=== PATIENT | female | born 1965 | race Caucasian/White ===

== ENCOUNTER 2023-11-12 16:38 | Inpatient (IN) | payer OTHER, SELFPAY ==
[2023-11-12] VITALS (7 sets, daily range): BP systolic 123–135; BP diastolic 76–87; PULSE 80–108; RESP 15–21; TEMP 36.6–37; O2SAT 86–92; BMI 23.2
--- NOTE | ~2023-11-12 | XR_ITS ---
EXAMINATION: XR HAND, RIGHT CLINICAL INFORMATION: Right COMPARISON: None available. TECHNIQUE: PA, lateral, and oblique views of the right hand. FINDINGS: Nondisplaced comminuted fracture of the proximal phalanges of the fourth and fifth fingers with surrounding soft tissue swelling. These fractures extends to involve the fourth and fifth metacarpal phalangeal joints. Underlying mild degenerative osteoarthritis of interphalangeal joints. XR/XR hand RT 2V IMPRESSION: Nondisplaced comminuted intra-articular fractures of the proximal phalanges of the fourth and fifth fingers with surrounding soft tissue swelling.
--- NOTE | ~2023-11-12 | CT_ITS ---
EXAMINATION: CT CHEST WITH CONTRAST CLINICAL INFORMATION: Patient recently presenting with shortness of breath. History of left ventricular thrombus or accessory papillary muscle. COMPARISON: Chest radiograph from 11/12/2023. TECHNIQUE: Multidetector volumetric CT imaging of the chest was obtained after the administration of 65 mL of Omnipaque 350 intravenous contrast without immediate adverse reactions. Axial MIP volume rendering provided. Sagittal and coronal reformatted images were obtained. This CT examination was performed using dose optimization techniques as appropriate, variously including the following: *Automated exposure control *Adjustment of mA and/or kV according to patient size (this includes techniques or standardized protocols for targeted exams where dose is matched to indication/reason for exam; i.e. extremities or head) *Use of iterative reconstruction technique DLP: 77 mGy-cm FINDINGS: LUNGS AND PLEURA: Moderate centrilobular emphysema has an upper lobe predominance. Mild atelectasis at the dependent aspect of each lower lobe. No evidence of pulmonary edema, focal consolidation or mass. CARDIOVASCULAR: These images of the chest were acquired during the phase of optimal enhancement of the thoracic aorta and not pulmonary arteries. Therefore, this examination does not evaluate for pulmonary emboli. The pulmonary artery trunk is approximately 3.3 cm transverse diameter which is borderline enlarged; consider possibility of pulmonary arterial hypertension. Cardiac chambers are normal in size. No pericardial effusion. There is a subtle curvilinear subendocardial hypoattenuation at the left ventricular apex. This could represent subendocardial fat from prior myocardial infarction. There is no left ventricular pseudoaneurysm or overt thrombus along the wall. The grossly normal anterior and posterior papillary muscles are noted (e.g., images 122 and 145, series 7). There is no visible cardiac mass. Thoracic aorta is normal in caliber. Aortic root is 3.4 cm and sinotubular junction 3 cm diameter. Note the level of the right pulmonary artery, the ascending thoracic aorta is 3.3 cm AP diameter. No thoracic aortic aneurysm or dissection. CORONARY ARTERY CALCIFICATION: Mild atherosclerotic calcification of the left anterior descending coronary artery is noted. MEDIASTINUM AND LOWER NECK: No mediastinal mass. The esophagus and thyroid gland are unremarkable. LYMPHATICS: No pathologic sized lymph nodes. UPPER ABDOMEN: Simple cyst of the posterior right kidney. No renal imaging follow-up is recommended for simple cysts. SKELETAL AND CHEST WALL: No acute or suspicious osseous abnormality. 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 Old mild compression fracture of the T6 vertebral body. Old T9 vertebral body compression fracture resulting in 50% anterior height loss. There appear to be a few old healed nondisplaced rib fractures. CT/CT chest w IV con IMPRESSION: * No CT imaging evidence of a left ventricular pseudoaneurysm or thrombus. * There appears to be subendocardial fat attenuation at the apex of the left ventricle as may be seen in myocardial infarction. * Pulmonary artery trunk is borderline enlarged; consider possibility of pulmonary arterial hypertension. * Moderate pulmonary emphysema has an upper lobe predominance. 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 Also, there are old fractures of T6 and T9 vertebral bodies
--- NOTE | ~2023-11-12 | XR_ITS ---
EXAMINATION: XR chest 1V CLINICAL INFORMATION: Reason for Exam SOB COMPARISON: None TECHNIQUE: Single portable frontal view. Tubes and lines: None Lungs and pleura: There is pulmonary vascular congestion, Diffuse increased interstitial lung marking and peribronchial cuffing might be a small airway disease such as bronchiolitis or interstitial pneumonitis, versus interstitial lung disease versus interstitial edema. No dense focal consolidation pneumonia. Heart and mediastinum: Prominent augusto bilaterally might be a vascular congestion in the setting of failure, The mediastinum is within normal limits.. Bones/soft tissue: Skeletal structures included are normal for patient's age. XR/XR chest 1V IMPRESSION: 1. Pulmonary vascular congestion. 2. Diffuse interstitial opacification could be interstitial edema, cannot rule out underlying superimposed infiltrates. 3. No significant pleural effusion. 4. Prominent augusto bilaterally could be vascular. Attention to follow-up chest PA and lateral recommended after patient's symptoms improved.
--- NOTE | 2023-11-12 16:56 | ECG_ITS ---
Test Reason : SOB Blood Pressure : / mmHG Vent. Rate : 090 BPM Atrial Rate : 090 BPM P-R Int : 172 ms QRS Dur : 104 ms QT Int : 396 ms P-R-T Axes : 072 120 042 degrees QTc Int : 484 ms Normal sinus rhythm Left posterior fascicular block Cannot rule out anteroseptal infarct Prolonged QT Abnormal ECG No previous ECGs available Referred By: Alex Hickey Electronically Signed By:Seth Alanis
--- NOTE | 2023-11-12 17:07 | ED.GENADULT ---
HPI - General Adult General Chief complaint: Dyspnea Stated complaint: Hx of COPD, CC SOB, low O2 sat, duoneb given Time Seen by Provider: 11/12/23 16:41 History of Present Illness HPI narrative: 57 years old with past medical history of COPD on 2/3 L of oxygen at home, opiate use disorder active, presents to the emergency room sent by her primary care doctor for shortness of breath. The patient presented to the office initially just for a checkup of a recent fracture of the 4th digit right hand which was treated with lucinda taping. However when she arrived she was somnolent, initial assessment showed an SpO2 of 83% on 3 L for which EMS was called. Patient was placed on 4 L nasal cannula, was given 1 DuoNeb with improvement of her symptoms. Patient endorsed that at 2:00 p.m. she snored heroin. Narcan was not given given the fact that patient's respiratory rate was never depressed. Patient on arrival is somnolent but easily arousable with verbal stimuli. Respiratory rate fluctuates between 10 and 12. She reports bilateral leg swelling over the past few days and worsening shortness of breath Patient denies prior cardiac history, looking back at her prior chart no other notes available. Related Data Allergies Allergy/AdvReac Type Severity Reaction Status Date / Time No Known Allergies Allergy Verified 11/12/23 16:49 Environmental Allergy Unknown Unknown Uncoded 11/12/23 16:49 Review of Systems Review of Systems: Yes all other systems are reviewed and are negative [facility] Social History Social History Use of substances other than those prescribed or required for medical reasons: Yes Substance Use Type: Heroin Advance Directives: No Advance Directives Information Provided: No Physical Exam ED Vital Signs: Vital Signs - 24 hr 11/12/23 16:44 11/12/23 17:21 11/12/23 18:28 Temperature 98.6 F Pulse Rate 91 87 92 Respiratory Rate 18 21 H 18 Blood Pressure 123/77 132/81 Pulse Oximetry 90 L 92 Oxygen Delivery Method Nasal Cannula Oxymask Oxygen Flow Rate 2 11/12/23 18:32 11/12/23 19:45 Temperature Pulse Rate 87 Respiratory Rate 15 Blood Pressure Pulse Oximetry 86 L Oxygen Delivery Method Oxymask Oxygen Flow Rate 2 BMI result Body Mass Index 23.2 General: Alert, Not in Distress Skin: No rash, warm HEENT: Atraumatic, No Exudate or Pharyngeal Erythema Resp: Some bilateral expiratory wheeze but mostly reduced respiratory sound throughout all mosley Cardio: Regular rate and Rhythm, Normal S1, S2 ABD: Abd soft, non tender, no guarding or rebound. Normal Bowel sounds. : No cva tenderness Neuro: Alert, oriented x4, PERRL Strenght 5/5 on all extremities Sensation is preserved in both lower and upper extremities Index to nose: normal Cranial Nerves II-XII grossly intact No dysarthria, or aphasia No neglet. Visual mosley are normal bilaterally Psych: Cooperative, NO SI Course Reevaluation(s) Reevaluation #1: In consideration of patient's VBG will discuss with respiratory therapist start of noninvasive ventilation. Time: 18:28 Reevaluation #2: Repeated VBG showed improvement of PH. Likely chronic respiratory acidosis. Discussed with hospitalist. We will admit to hospital for acute heart failure, COPD exacerbation. Time: 20:37 Medications Administered Discontinued Medications Generic Name Dose Route Start Last Admin Trade Name Freq PRN Reason Stop Dose Admin Albuterol Sulfate 5 mg/ 0 mg 11/12/23 17:13 11/12/23 17:21 Albuterol/Ipratropium 3 ml INHALE 11/12/23 17:14 7.5 each ONCE ONE Administration Furosemide 40 mg 11/12/23 16:58 11/12/23 17:39 Furosemide 40 Mg/4 Ml Vial IVPUSH 11/12/23 16:59 40 mg ONCE ONE Administration Protocol Methylprednisolone Sodium Succinate 125 mg 11/12/23 16:57 11/12/23 17:38 Methylprednisolone Sod Succ 125 Mg/2 Ml Vial IVPUSH 11/12/23 16:58 125 mg ONCE ONE Administration Medical Decision Making Medical Decision Making [facility] Narrative: Patient presented to the emergency room with new onset shortness of breath. Patient has history of COPD, no history of heart disease from what we know, she also uses heroin daily last dose was at 2:00 p.m.. Did not receive Narcan today. Patient respiratory rate at this time does not warrant administration of Narcan, bedside ultrasound which I personally performed showed bilateral B-lines. Likely this is a if 1st presentation of acute heart failure although a component of COPD can not be ruled out. Possible other differential diagnosis includes pneumonia although without fever is less likely. Plan CBC, BMP, BNP, troponin Chest x-ray X-ray and Lasix 40 mg IV Steroids Bronchodilator protocol Patient at this time is requiring 5 L nasal cannula we will consider a switching to open mask if needed. Target SpO2 88-92% Admission/Observation Consideration of admission/observation: Escalation of care including admission/observation considered Lab Data MDM Lab Attestation statement: I reviewed the patient's lab results. VBG shows respiratory acidosis, 11/12/23 17:06 11/12/23 17:06 Labs: Lab Results 11/12/23 11/12/23 11/12/23 Range/Units 17:06 17:36 20:26 WBC 6.1 (4.8-10.8) X10*3/uL RBC 5.46 (4.20-5.50) X10*6/uL Hgb 16.1 H (12.0-16.0) g/dl Hct 52.5 H (37.0-47.0) % MCV 96.2 (80.0-98.0) fL MCH 29.5 (27.0-33.0) pg MCHC 30.7 L (31.0-35.0) g/dl RDW 13.5 (11.0-16.0) % Plt Count 213 (160-400) X10*3/uL MPV 9.5 (9.4-12.3) fL Immature Gran % (Auto) 0.5 H (0.0-0.4) % Neut % (Auto) 74.4 H (45-73) % Lymph % (Auto) 12.0 L (20-40) % [place] % (Auto) 12.8 H (2-11) % Eos % (Auto) 0.0 (0-4) % Baso % (Auto) 0.3 (0-2) % Lymph # (Auto) 0.7 L (1.2-4.9) X10*3/uL [place] # (Auto) 0.8 (0.1-1.2) X10*3/uL Eos # (Auto) 0.0 (0.0-0.4) X10*3/uL Baso # (Auto) 0.0 (0.0-0.2) X10*3/uL Abs Immat Gran (auto) 0.03 (0.00-0.03) X10*3/uL Absolute Neuts (auto) 4.5 (2.0-8.3) x10*3/uL Absolute Nucleated RBC 0.000 (0.0-0.012) X10*3/uL Nucleated RBC % (auto) 0.0 (0.0-0.2) /100WBC VBG pH 7.30 L 7.37 (7.32-7.43) VBG pCO2 84 86 mmHg VBG pO2 90 78 mmHg VBG HCO3 42 H 50 H (22-26) mmol/L VBG O2 Saturation 99.0 97.0 % VBG Base Excess 11.0 18.7 mmol/L Sodium 139 (135-145) mmol/L Potassium 4.8 (3.3-5.1) mmol/L Chloride 93 L (96-108) mmol/L Carbon Dioxide 36 H (22-29) mmol/L Anion Gap 15 (12-20) BUN 11 (9-16) mg/dL Creatinine 0.54 (0.5-1.4) mg/dL Estim Creat Clear Calc 93.9 Estimated GFR > 60 Random Glucose 94 (60-115) mg/dL Calcium 9.3 (8.4-10.2) mg/dL Troponin I High Sens < 2.7 (<3.5-17.0) ng/L B-Natriuretic Peptide 209 H (<100) pg/mL Independent Interpretation I performed an independent interpretation of an: EKG (I personally reviewed the patient's EKG that shows sinus rhythm), Plain X-Ray (I personally reviewed patient x-ray of the hand that showed normal alignment of the bone fragment.) and Ultrasound (I personally performed bedside ultrasound of the lungs which showed bilateral B-lines. I personally performed cardiac ultrasound at bedside that showed normal LV function mildly enlarged RV and RA) Interpretation: I personally reviewed and interpreted the patient's chest x-ray that shows bilateral congestion. Independent Historian Clinical information obtained from an independent historian. History obtained from or confirmed by: Spouse Chronic Conditions Patient?s care impacted by: Other (codp, opiate use disorer) Critical Care Time Critical Care Time Critical Care Time: Yes Total Critical Care Time: 35 Attestation: The patient was critically ill with high probability of imminent of life-threatening deterioration, due to acute respiratory failure and hypoxemia I spent 35 minutes of discontinuous time evaluating the patient, delivering critical care at bedside, discussing and evaluating parents with creative consultant, critical care time does not include time spent performing separately billable procedure or teaching. Discharge Plan Discharge Clinical Impression: Acute exacerbation of chronic obstructive airways disease, Congestive heart failure Patient Disposition: Admitted As Inpatient Print Language: Czech
[2023-11-12 17:10] LABS: MANUAL DIFF FLAG NO
[2023-11-12 17:12] LABS: Basophils Percent Auto 0.3 % (0-2); Hematocrit 52.5 % (37.0-47.0); Hemoglobin 16.1 g/dl (12.0-16.0); Imm Gran Abs Auto 0.03 X10*3/uL (0.00-0.03); Imm Gran Pct Auto 0.5 % (0.0-0.4); Lymphocytes Absolute Auto 0.7 X10*3/uL (1.2-4.9); Mean Corpuscular HGB Conc 30.7 g/dl (31.0-35.0); Mean Corpuscular Hemoglobin 29.5 pg (27.0-33.0); Mean Corpuscular Volume 96.2 fL (80.0-98.0); Mean Platelet Volume 9.5 fL (9.4-12.3); Monocytes Absolute Auto 0.8 X10*3/uL (0.1-1.2); Monocytes Percent Auto 12.8 % (2-11); Neutrophils Absolute Auto 4.5 x10*3/uL (2.0-8.3); Neutrophils Percent Auto 74.4 % (45-73); Platelet Count 213 X10*3/uL (160-400); Red Blood Count 5.46 X10*6/uL (4.20-5.50); Red Cell Distribution Width 13.5 % (11.0-16.0); White Blood Count 6.1 X10*3/uL (4.8-10.8)
[2023-11-12] MEDS: Albuterol Sulfate 5 MG, Albuterol/Iprat 2.5/0.5MG 3 ML 3 ML INHALE (17:21)
[2023-11-12 17:33] LABS: B Type Natriuretic Peptide 209 pg/mL (<100)
[2023-11-12 17:36] LABS: Troponin-I High Sensitivity < 2.7 ng/L (<3.5-17.0)
[2023-11-12 17:37] LABS: Anion Gap 15 (12-20); Blood Urea Nitrogen 11 mg/dL (9-16); Calcium 9.3 mg/dL (8.4-10.2); Carbon Dioxide 36 mmol/L (22-29); Chloride 93 mmol/L (96-108); Creatinine Clr Calc Pharmacy 93.9; Estimated Glomerular Filt Rate > 60; Glucose Random 94 mg/dL (60-115); Potassium 4.8 mmol/L (3.3-5.1); Sodium 139 mmol/L (135-145)
[2023-11-12] MEDS: methylPREDNISolone Sod Succ 125 MG/2 ML VIAL IVPUSH (17:38)
[2023-11-12] MEDS: Furosemide 40 MG/4 ML VIAL IVPUSH (17:39)
[2023-11-12 17:43] LABS: VBG HCO3 42 mmol/L (22-26); VBG pCO2 84 mmHg; VBG pO2 90 mmHg
[2023-11-12 17:43] LABS: Venous Blood Gas Refer to POC result
--- NOTE | 2023-11-12 20:05 | PC.NURSE ---
pt tolerating bipap
[2023-11-12 20:32] LABS: VBG Base Excess 18.7 mmol/L; VBG HCO3 50 mmol/L (22-26); VBG pCO2 86 mmHg; VBG pH 7.37 (7.32-7.43); VBG pO2 78 mmHg
[2023-11-12 20:37] LABS: Venous Blood Gas Refer to POC result
--- NOTE | 2023-11-12 20:56 | PM.IMHP ---
History of Present Illness Date of Service: 11/12/23 Chief Complaint: Dyspnea This is a 57-year-old female with pertinent history of chronic hypoxic respiratory failure due to COPD on baseline 2 L supplemental oxygen, congestive heart failure with unspecified EF, mood disorder, heroin use disorder who presents to the emergency department for evaluation of dyspnea. Patient states she has been having symptoms for a while . Is a poor historian. Patient went today to PCP's office where she was found to be hypoxemic with SpO2 83% on 3 L supplemental oxygen and she was sent to the ER. Does endorse using heroin on the day of presentation. Admits wheezing but unclear orthopnea or PND. No cough, chest pain or palpitations. Does endorse bilateral lower extremity leg swelling. No fever, chills, abdominal pain, changes in urinary or bowel habits. In the emergency department, patient was found to be satting 86% on her home O2. Imaging with vascular congestion and interstitial edema with BNP 209. Patient was given IV furosemide 40 mg and IV Solu-Medrol with DuoNeb treatments in the ER. Review of Systems Constitutional: Constitutional: Reports fatigue and Reports weakness Cardiovascular: Cardiovascular: Reports dyspnea on exertion Respiratory: Respiratory: Reports dyspnea on exertion and Reports wheezing Gastrointestinal: Gastrointestinal: Reports no additional gastrointestinal complaints Genitourinary: Genitourinary: Reports no additional female genitourinary complaints Neurologic: Reports weakness Endocrine: Endocrine: Reports fatigue Allergic/Immunologic: Allergic/Immunologic: Reports wheezing [facility] Medical History (Updated 11/12/23 @ 22:10 by Luis Tovar MD) Mood disorder Opioid use disorder Chronic respiratory failure with hypoxia Congestive heart failure Social History Use of substances other than those prescribed or required for medical reasons: Yes Substance Use Type: Heroin Advance Directives: No Advance Directives Information Provided: No Meds Allergies Allergy/AdvReac Type Severity Reaction Status Date / Time No Known Allergies Allergy Verified 11/12/23 16:49 Environmental Allergy Unknown Unknown Uncoded 11/12/23 16:49 Home Medications ?Medication ?Instructions ?Recorded ?Confirmed ?Last Taken ?Type albuterol sulfate 90 mcg/actuation 2 puff inhalation QID PRN wheezing 11/12/23 Unknown History aerosol inhaler alendronate 70 mg tablet 70 mg PO QWEEK 11/12/23 Unknown History diphenhydramine HCl 25 mg tablet 25 mg PO BEDTIME PRN Insomnia 11/12/23 Unknown History (NightTime Sleep Aid (diphenhydramine)) fluticasone furoate 200 1 ea inhalation DAILY 11/12/23 Unknown History mcg-vilanterol 25 mcg/dose inhalation powder (Breo Ellipta) furosemide 20 mg tablet 20 mg PO DAILY 11/12/23 11/12/23 Unknown History hydroxyzine pamoate 25 mg capsule 25 mg PO BID PRN Anxiety 11/12/23 Unknown History mirtazapine 7.5 mg tablet 7.5 mg PO BEDTIME insomnia 11/12/23 Unknown History nicotine 14 mg/24 hr daily 1 patch topical DAILY 11/12/23 Unknown History transdermal patch polyethylene glycol 3350 17 17 g PO DAILY 11/12/23 Unknown History gram/dose oral powder (Gavilax) umeclidinium 62.5 mcg/actuation 1 inh inhalation DAILY 11/12/23 Unknown History blister powder for inhalation (Incruse Ellipta) venlafaxine 150 mg 150 mg PO DAILY 11/12/23 Unknown History capsule,extended release 24 hr venlafaxine 37.5 mg 37.5 mg PO DAILY 11/12/23 Unknown History capsule,extended release 24 hr Physical Exam Vital Signs and Narrative: Vital Signs: Last Vital Signs Temp 98.6 F 11/12/23 16:44 Pulse 87 11/12/23 18:32 Resp 15 11/12/23 19:45 BP 132/81 11/12/23 18:28 Pulse Ox 86 L 11/12/23 18:32 O2 Del Method Oxymask 11/12/23 18:32 O2 Flow Rate 2 11/12/23 18:32 Oxygen Flow Rate 4 11/12/23 16:44 BMI result Body Mass Index 23.2 Middle-aged female lying in bed in mild distress on supplemental oxygen Neck supple, + JVD Regular rate and rhythm, S1-S2 heard Bilateral crackles with wheezing Abdomen soft nontender, no guarding, no rigidity Patient is drowsy but awakens to verbal stimulus, oriented to self, place and time, no focal motor weakness Psych: Lethargic Bilateral pedal edema present Results Labs 11/12/23 17:06 11/12/23 17:06 Labs: Laboratory Results - last 24 hr 11/12/23 11/12/23 11/12/23 17:06 17:36 20:26 MCV 96.2 MCH 29.5 MCHC 30.7 L RDW 13.5 Plt Count 213 MPV 9.5 Immature Gran % (Auto) 0.5 H Neut % (Auto) 74.4 H Lymph % (Auto) 12.0 L [place] % (Auto) 12.8 H Eos % (Auto) 0.0 Baso % (Auto) 0.3 Lymph # (Auto) 0.7 L [place] # (Auto) 0.8 Eos # (Auto) 0.0 Baso # (Auto) 0.0 Abs Immat Gran (auto) 0.03 Absolute Neuts (auto) 4.5 Absolute Nucleated RBC 0.000 Nucleated RBC % (auto) 0.0 VBG pH 7.30 L 7.37 VBG pCO2 84 86 VBG pO2 90 78 VBG HCO3 42 H 50 H VBG O2 Saturation 99.0 97.0 VBG Base Excess 11.0 18.7 Anion Gap 15 Estim Creat Clear Calc 93.9 Estimated GFR > 60 Random Glucose 94 Calcium 9.3 Troponin I High Sens < 2.7 B-Natriuretic Peptide 209 H Imaging Radiologist's Impressions: Impressions Chest X-Ray 11/12/23 17:32 IMPRESSION: 1. Pulmonary vascular congestion. 2. Diffuse interstitial opacification could be interstitial edema, cannot rule out underlying superimposed infiltrates. 3. No significant pleural effusion. 4. Prominent augusto bilaterally could be vascular. Attention to follow-up chest PA and lateral recommended after patient's symptoms improved. Hand X-Ray 11/12/23 17:32 IMPRESSION: Nondisplaced comminuted intra-articular fractures of the proximal phalanges of the fourth and fifth fingers with surrounding soft tissue swelling. Assessment and Plan (1) Acute exacerbation of chronic obstructive airways disease: Status: Acute (2) Congestive heart failure: Status: Acute Plan This is a 57-year-old female with pertinent history of chronic hypoxic respiratory failure due to COPD on baseline 2 L supplemental oxygen, congestive heart failure with unspecified EF, mood disorder, heroin use disorder who presents to the emergency department for evaluation of dyspnea. #. Acute on chronic hypoxemic respiratory failure due to decompensated CHF + exacerbation of COPD: On baseline 2 L supplemental oxygen. Currently requiring 4-5 L in the ER. Monitor and wean as tolerated. Maintain oxygen saturation greater than 88% #. Acute decompensated congestive heart failure, unspecified EF: Initiating IV diuresis. Strict I's and O's. Low-salt diet #. Acute exacerbation of COPD: Scheduled and p.r.n. DuKandacebs. Initiating IV steroids. Continue home inhaler #. Heroin use disorder: UDS pending. Consulted Addiction Team. COWS q shift #. Mood disorder: Continue home mood stabilizers Med rec pending DVT prophylaxis: Lovenox Full code Admit as inpatient and will require two night minimum hospital stay for supplemental oxygen, IV steroids, IV diuresis (as above), which is not possible in a lesser acute setting. Quality Stroke Does the patient have a stroke diagnosis?: No VTE Prior VTE?: No VTE Risk Level:: Medical - moderate - high VTE Device Contraindication: Treatment Not Indicated VTE Drug Contraindication: N/A - Med Ordered
[2023-11-12] MEDS: Enoxaparin Sodium 40 MG/0.4 ML SYRINGE SUBCUT (21:28)
--- NOTE | 2023-11-12 22:05 | MHC.EDTECH ---
Pt cleaned, repositioned and new purewick placed. Warm blankets given, call graves within reach.
--- NOTE | 2023-11-12 22:21 | PHA.MEDREC ---
Pharmacy Consult ? Medication Reconciliation Pharmacy has completed the medication reconciliation, pt was able to report medications when given their names.
--- NOTE | 2023-11-12 22:59 | PC.NURSE ---
pt requesting to take her off the bipap, resp notified
--- NOTE | 2023-11-12 23:44 | PC.NURSE ---
resp therapy in with pt
[2023-11-12] MEDS: Albuterol/Iprat 2.5/0.5MG 3 ML AMPUL.NEB INHALE (23:54)
[2023-11-13] VITALS (11 sets, daily range): BP systolic 109–180; BP diastolic 65–115; PULSE 69–101; RESP 15–20; TEMP 36.7–37.1; O2SAT 90–94
--- NOTE | 2023-11-13 00:29 | PC.NURSE ---
Addendum entered by Danyell Gerber RN 11/13/23 02:35: pt decreased to 2liters of O2 via oximzer per resp therapy Addendum entered by Danyell Gerber RN 11/13/23 00:33: pt O2 was changed to 4l per resp therapy Original Note: pt currently on oximzer mask at 2 liters of O2, 91%
[2023-11-13] MEDS: oxyCODONE HCl Immed Release 5 MG TABLET 10 MG PO (00:43)
[2023-11-13] MEDS: 0.9 % Sodium Chloride Flush 3 ML SYRINGE IVFLUSH (00:47)
--- NOTE | 2023-11-13 03:45 | MHC.EDTECH ---
Pt cleaned, repositioned and new purewick placed. Call graves within reach. Warm blankets given
--- NOTE | 2023-11-13 03:45 | PC.NURSE ---
Addendum entered by Danyell Gerber RN 11/13/23 03:54: aware, x-ray taken Original Note: pt reported a fx right hand, she has the CD
[2023-11-13 05:28] LABS: MANUAL DIFF FLAG NO
[2023-11-13 05:29] LABS: Basophils Percent Auto 0.2 % (0-2); Hematocrit 50.3 % (37.0-47.0); Imm Gran Abs Auto 0.01 X10*3/uL (0.00-0.03); Imm Gran Pct Auto 0.2 % (0.0-0.4); Lymphocytes Absolute Auto 0.3 X10*3/uL (1.2-4.9); Lymphocytes Percent Auto 5.9 % (20-40); Mean Corpuscular HGB Conc 31.8 g/dl (31.0-35.0); Mean Corpuscular Hemoglobin 29.8 pg (27.0-33.0); Mean Corpuscular Volume 93.7 fL (80.0-98.0); Mean Platelet Volume 9.3 fL (9.4-12.3); Monocytes Absolute Auto 0.9 X10*3/uL (0.1-1.2); Monocytes Percent Auto 17.6 % (2-11); Neutrophils Absolute Auto 3.7 x10*3/uL (2.0-8.3); Neutrophils Percent Auto 76.1 % (45-73); Platelet Count 215 X10*3/uL (160-400); Red Blood Count 5.37 X10*6/uL (4.20-5.50); Red Cell Distribution Width 13.3 % (11.0-16.0); White Blood Count 4.9 X10*3/uL (4.8-10.8)
[2023-11-13 06:07] LABS: Anion Gap 15 (12-20); Blood Urea Nitrogen 12 mg/dL (9-16); Carbon Dioxide 40 mmol/L (22-29); Chloride 88 mmol/L (96-108); Creatinine Clr Calc Pharmacy 93.9; Estimated Glomerular Filt Rate > 60; Glucose Random 135 mg/dL (60-115); Potassium 3.7 mmol/L (3.3-5.1); Sodium 139 mmol/L (135-145)
--- NOTE | 2023-11-13 06:10 | PC.NURSE ---
pt bicarb 40. MD aware
[2023-11-13] MEDS: Acetaminophen 325 MG TABLET 650 MG PO ×2 (07:26→17:20)
[2023-11-13] MEDS: Furosemide 40 MG/4 ML VIAL IVPUSH (07:27)
[2023-11-13] MEDS: methylPREDNISolone Sod Succ 40 MG/ML VIAL IVPUSH ×2 (07:28→21:50)
[2023-11-13] MEDS: Albuterol/Iprat 2.5/0.5MG 3 ML AMPUL.NEB INHALE ×3 (07:36→18:43)
[2023-11-13] MEDS: Venlafaxine HCl ER 150 MG CAP.ER.24H PO (09:26)
[2023-11-13] MEDS: Venlafaxine HCl ER 37.5 MG CAP.ER.24H PO (09:26)
--- NOTE | 2023-11-13 10:59 | HO.ADDICT_ITS ---
History of Present Illness Date of Service: 11/13/2023 Chief Complaint: Dyspnea Reason for Consult: OUD Sources of Information: patient interviewed and chart reviewed HPI Narrative: Patient is a 57 year old female medically admitted with COPD exacerbation. Presented to ED from PCP office where she was found to be desatting and somnolent. She reported using heroin prior to appt. Seen in ED room 14. Awake, alert, engaged in interview. Appearing uncomfortable-restless, eyes watering, rhinorrhea. Reporting upset stomach, body aches, anxiety. She reports using 5-6 bags of heroin/fentanyl daily [place] for that last couple of years. Denies any history of overdsoe Denies any history of ATS admission Suboxone very briefly--unsure when, but not recent No history of methadone treatment Labs and EKG reviewed Medical Evaluation Reviewed: Yes Review of Systems Constitutional: Reports as per HPI Diagnostics Vital Signs (24Hr): Vital Signs - 24 hr 11/12/23 16:44 11/12/23 17:21 11/12/23 18:28 Temperature 98.6 F Pulse Rate 91 87 92 Respiratory Rate 18 21 H 18 Blood Pressure 123/77 132/81 Pulse Oximetry 90 L 92 Oxygen Delivery Method Nasal Cannula Oxymask Oxygen Flow Rate 2 11/12/23 18:32 11/12/23 19:45 11/12/23 22:11 Temperature 97.8 F Pulse Rate 87 90 Respiratory Rate 15 17 Blood Pressure 135/87 Pulse Oximetry 86 L 91 L Oxygen Delivery Method Oxymask BiPAP Oxygen Flow Rate 2 11/12/23 23:54 11/13/23 01:50 11/13/23 05:00 Temperature 98.5 F Pulse Rate 90 101 H 96 Respiratory Rate 17 18 20 Blood Pressure 109/65 130/78 Pulse Oximetry 93 92 Oxygen Delivery Method Oxymask Oxymask Oxygen Flow Rate 4 2 11/13/23 07:19 11/13/23 07:27 11/13/23 07:36 Temperature 98.1 F Pulse Rate 88 88 Respiratory Rate 17 17 Blood Pressure 149/96 H 149/96 H Pulse Oximetry 93 Oxygen Delivery Method Oxymask Oxygen Flow Rate 2 BMI result Body Mass Index 23.2 Labs 11/13/23 05:09 11/13/23 05:09 Labs: Laboratory Results - last 48 hr 11/12/23 11/12/23 11/12/23 17:06 17:36 20:26 WBC 6.1 RBC 5.46 Hgb 16.1 H Hct 52.5 H MCV 96.2 MCH 29.5 MCHC 30.7 L RDW 13.5 Plt Count 213 MPV 9.5 Immature Gran % (Auto) 0.5 H Neut % (Auto) 74.4 H Lymph % (Auto) 12.0 L [place] % (Auto) 12.8 H Eos % (Auto) 0.0 Baso % (Auto) 0.3 Lymph # (Auto) 0.7 L [place] # (Auto) 0.8 Eos # (Auto) 0.0 Baso # (Auto) 0.0 Abs Immat Gran (auto) 0.03 Absolute Neuts (auto) 4.5 Absolute Nucleated RBC 0.000 Nucleated RBC % (auto) 0.0 VBG pH 7.30 L 7.37 VBG pCO2 84 86 VBG pO2 90 78 VBG HCO3 42 H 50 H VBG O2 Saturation 99.0 97.0 VBG Base Excess 11.0 18.7 Sodium 139 Potassium 4.8 Chloride 93 L Carbon Dioxide 36 H Anion Gap 15 BUN 11 Creatinine 0.54 Estim Creat Clear Calc 93.9 Estimated GFR > 60 Random Glucose 94 Calcium 9.3 Troponin I High Sens < 2.7 B-Natriuretic Peptide 209 H 11/13/23 05:09 WBC 4.9 RBC 5.37 Hgb 16.0 Hct 50.3 H MCV 93.7 MCH 29.8 MCHC 31.8 RDW 13.3 Plt Count 215 MPV 9.3 L Immature Gran % (Auto) 0.2 Neut % (Auto) 76.1 H Lymph % (Auto) 5.9 L [place] % (Auto) 17.6 H Eos % (Auto) 0.0 Baso % (Auto) 0.2 Lymph # (Auto) 0.3 L [place] # (Auto) 0.9 Eos # (Auto) 0.0 Baso # (Auto) 0.0 Abs Immat Gran (auto) 0.01 Absolute Neuts (auto) 3.7 Absolute Nucleated RBC 0.000 Nucleated RBC % (auto) 0.0 VBG pH VBG pCO2 VBG pO2 VBG HCO3 VBG O2 Saturation VBG Base Excess Sodium 139 Potassium 3.7 D Chloride 88 L Carbon Dioxide 40 H* Anion Gap 15 BUN 12 Creatinine 0.54 Estim Creat Clear Calc 93.9 Estimated GFR > 60 Random Glucose 135 H Calcium 9.0 Troponin I High Sens B-Natriuretic Peptide Imaging Radiology Impressions: ITS Impressions Chest X-Ray 11/12/23 17:32 IMPRESSION: 1. Pulmonary vascular congestion. 2. Diffuse interstitial opacification could be interstitial edema, cannot rule out underlying superimposed infiltrates. 3. No significant pleural effusion. 4. Prominent augusto bilaterally could be vascular. Attention to follow-up chest PA and lateral recommended after patient's symptoms improved. Hand X-Ray 11/12/23 17:32 IMPRESSION: Nondisplaced comminuted intra-articular fractures of the proximal phalanges of the fourth and fifth fingers with surrounding soft tissue swelling. Mental Status Exam Mental Status Exam Patient Appearance: Appropriate Level of Consciousness: Awake, Appropriate and Restless Patient Behavior: Appropriate and Anxious Medications Medications Current Medications Acetaminophen (Acetaminophen 325 Mg Tablet) 650 mg PO Q6H PRN PRN Reason: Pain, Mild (Pain Scale 1-3) Last Admin: 11/13/23 07:26 Dose: 650 mg Albuterol/Ipratropium (Albuterol/Iprat 2.5/0.5mg 3 Ml Ampul.Neb) 3 ml INHALE RQ4H WHILE AWAKE [facility] Last Admin: 11/13/23 07:36 Dose: 3 ml Albuterol/Ipratropium (Albuterol/Iprat 2.5/0.5mg 3 Ml Ampul.Neb) 3 ml INHALE Q4H PRN PRN Reason: Wheezing Last Admin: 11/12/23 23:54 Dose: 3 ml Enoxaparin Sodium (Enoxaparin Sodium 40 Mg/0.4 Ml Syringe) 40 mg SUBCUT Q24H [facility] Last Admin: 11/12/23 21:28 Dose: 40 mg Fluticasone/Vilanterol (Fluticasone/Vilanterol 200/25 Blst.W.Dev) 1 puff INHALE RDAILY [facility] Last Admin: 11/13/23 09:13 Dose: Not Given Furosemide (Furosemide 40 Mg/4 Ml Vial) 40 mg IVPUSH DAILY [facility]; Protocol Last Admin: 11/13/23 07:27 Dose: 40 mg Melatonin (Melatonin 3 Mg Tablet) 6 mg PO BEDTIME PRN PRN Reason: Insomnia Methadone HCl (Methadone Hcl 20 Mg/2 Ml Oral.Conc) 30 mg PO ONCE ONE Stop: 11/13/23 10:58 Methylprednisolone Sodium Succinate (Methylprednisolone Sod Succ 40 Mg/Ml Vial) 40 mg IVPUSH Q12H [facility] Last Admin: 11/13/23 07:28 Dose: 40 mg Mirtazapine (Mirtazapine 7.5 Mg Tablet) 7.5 mg PO BEDTIME [facility] Ondansetron HCl (Ondansetron Hcl 4 Mg/2 Ml Vial) 4 mg IVPUSH Q8H PRN PRN Reason: Nausea and Vomiting Sodium Chloride (0.9 % Sodium Chloride Flush 3 Ml Syringe) 3 ml IVFLUSH QSHIFT [facility] Last Admin: 11/13/23 07:32 Dose: Not Given Venlafaxine HCl (Venlafaxine Hcl Er 150 Mg Cap.Er.24h) 150 mg PO DAILY [facility] Last Admin: 11/13/23 09:26 Dose: 150 mg Venlafaxine HCl (Venlafaxine Hcl Er 37.5 Mg Cap.Er.24h) 37.5 mg PO DAILY [facility] Last Admin: 11/13/23 09:26 Dose: 37.5 mg Allergies Allergies Allergy/AdvReac Type Severity Reaction Status Date / Time No Known Allergies Allergy Verified 11/12/23 16:49 Environmental Allergy Unknown Unknown Uncoded 11/12/23 16:49 Assessment & Plan Assessment & Plan (1) Opioid use disorder: Status: Acute Code(s): F11.90 - Opioid use, unspecified, uncomplicated Assessment and Plan: * acute withdrawal --methadone 30mg X1 * patient expressing that she wishes to contnue methadone upon discharge, but will need assistance coordinating * will continue to follow Total time managing care of this patient today _35___ minutes. [facility] Past Medical History Medical History (Updated 11/12/23 @ 22:10 by Luis Tovar MD) Mood disorder Opioid use disorder Chronic respiratory failure with hypoxia Congestive heart failure Social History Social History Use of substances other than those prescribed or required for medical reasons: Yes Substance Use Type: Heroin Advance Directives: No Advance Directives Information Provided: No
[2023-11-13] MEDS: methADONE HCl 20 MG/2 ML ORAL.CONC 30 MG PO (11:20)
[2023-11-13 11:34] LABS: Amphetamine Screen Urine Not Detected (Not Detect); Barbiturates, Urine Not Detected (Not Detect); Benzodiazepines Screen Urine Not Detected (Not Detect); Buprenorphine Scr Not Detected (Not Detect); Cannabinoid Screen Urine Not Detected (Not Detect); Cocaine Screen Urine Not Detected (Not Detect); Fentanyl, urine POSITIVE (Not Detect); Methadone Screen, Urine Not Detected (Not Detect); Opiate Screen Urine Not Detected (Not Detect); Oxycodone Screen Urine Not Detected (Not Detect); Phencyclidine Screen Urine Not Detected (Not Detect)
--- NOTE | 2023-11-13 11:45 | HO.PM.IMPN ---
Subjective Subjective Date of Service: 11/13/23 Interval History: Being followed for shortness of breath being treated for acute on chronic hypoxic respiratory failure due to COPD exacerbation and CHF. Feels better denies chest pain, no shortness of breath ,no orthopnea, no PND, no fevers, no chills, no cough ,no worsening pain right hand 4th and 5th fingers. Review of Systems All other system reviewed and negative Physical Exam Vital Signs: Vital Signs: Last Vital Signs Temp 98.1 F 11/13/23 07:19 Pulse 69 11/13/23 11:12 Resp 17 11/13/23 11:12 BP 149/96 H 11/13/23 07:27 Pulse Ox 93 11/13/23 07:19 O2 Del Method Oxymask 11/13/23 07:19 O2 Flow Rate 2 11/13/23 07:19 Oxygen Flow Rate 4 11/12/23 16:44 BMI result Body Mass Index 23.2 Const: Other: General awake alert x3, resting comfortably in no acute distress. Neck supple no JVD. CVS regular rate rhythm, Respiratory lungs coarse breath sounds , occasional wheeze, no respiratory distress, Gastrointestinal abdomen soft, non tender, bowel sounds audible. Extremities no edema. Neuro non focal Skin right hand bruising 4th and 5th finger and wrist Psych appropriate affect Objective Data Active Medications Acetaminophen (Acetaminophen 325 Mg Tablet) 650 mg PO Q6H PRN PRN Reason: Pain, Mild (Pain Scale 1-3) Last Admin: 11/13/23 07:26 Dose: 650 mg Documented By: JOSÉ MIGUEL Albuterol/Ipratropium (Albuterol/Iprat 2.5/0.5mg 3 Ml Ampul.Neb) 3 ml INHALE RQ4H WHILE AWAKE [facility] Last Admin: 11/13/23 11:12 Dose: 3 ml Documented By: MARY Albuterol/Ipratropium (Albuterol/Iprat 2.5/0.5mg 3 Ml Ampul.Neb) 3 ml INHALE Q4H PRN PRN Reason: Wheezing Last Admin: 11/12/23 23:54 Dose: 3 ml Documented By: VISHAL Enoxaparin Sodium (Enoxaparin Sodium 40 Mg/0.4 Ml Syringe) 40 mg SUBCUT Q24H [facility] Last Admin: 11/12/23 21:28 Dose: 40 mg Documented By: FROILAN Fluticasone/Vilanterol (Fluticasone/Vilanterol 200/25 Blst.W.Dev) 1 puff INHALE RDAILY [facility] Last Admin: 11/13/23 09:13 Dose: Not Given Documented By: MARY Non-Admin Reason: pharmacy called to fill order Furosemide (Furosemide 40 Mg/4 Ml Vial) 40 mg IVPUSH DAILY [facility]; Protocol Last Admin: 11/13/23 07:27 Dose: 40 mg Documented By: JOSÉ MIGUEL Melatonin (Melatonin 3 Mg Tablet) 6 mg PO BEDTIME PRN PRN Reason: Insomnia Methylprednisolone Sodium Succinate (Methylprednisolone Sod Succ 40 Mg/Ml Vial) 40 mg IVPUSH Q12H [facility] Last Admin: 11/13/23 07:28 Dose: 40 mg Documented By: JOSÉ MIGUEL Mirtazapine (Mirtazapine 7.5 Mg Tablet) 7.5 mg PO BEDTIME [place] Ondansetron HCl (Ondansetron Hcl 4 Mg/2 Ml Vial) 4 mg IVPUSH Q8H PRN PRN Reason: Nausea and Vomiting Sodium Chloride (0.9 % Sodium Chloride Flush 3 Ml Syringe) 3 ml IVFLUSH QSHIFT [facility] Last Admin: 11/13/23 07:32 Dose: Not Given Documented By: JOSÉ MIGUEL Non-Admin Reason: See Note Venlafaxine HCl (Venlafaxine Hcl Er 150 Mg Cap.Er.24h) 150 mg PO DAILY [facility] Last Admin: 11/13/23 09:26 Dose: 150 mg Documented By: TINA Venlafaxine HCl (Venlafaxine Hcl Er 37.5 Mg Cap.Er.24h) 37.5 mg PO DAILY [facility] Last Admin: 11/13/23 09:26 Dose: 37.5 mg Documented By: TINA Labs 11/13/23 05:09 11/13/23 05:09 Labs: Laboratory Results - last 24 hr 11/12/23 11/12/23 11/12/23 17:06 17:36 20:26 MCV 96.2 MCH 29.5 MCHC 30.7 L RDW 13.5 Plt Count 213 MPV 9.5 Immature Gran % (Auto) 0.5 H Neut % (Auto) 74.4 H Lymph % (Auto) 12.0 L [place] % (Auto) 12.8 H Eos % (Auto) 0.0 Baso % (Auto) 0.3 Lymph # (Auto) 0.7 L [place] # (Auto) 0.8 Eos # (Auto) 0.0 Baso # (Auto) 0.0 Abs Immat Gran (auto) 0.03 Absolute Neuts (auto) 4.5 Absolute Nucleated RBC 0.000 Nucleated RBC % (auto) 0.0 VBG pH 7.30 L 7.37 VBG pCO2 84 86 VBG pO2 90 78 VBG HCO3 42 H 50 H VBG O2 Saturation 99.0 97.0 VBG Base Excess 11.0 18.7 Anion Gap 15 Estim Creat Clear Calc 93.9 Estimated GFR > 60 Random Glucose 94 Calcium 9.3 Troponin I High Sens < 2.7 B-Natriuretic Peptide 209 H Urine Opiates Screen Ur Buprenorphine Scrn Ur Oxycodone Screen Urine Methadone Screen Urine Fentanyl Screen Ur Barbiturates Screen Ur Phencyclidine Scrn Ur Amphetamines Screen U Benzodiazepines Scrn Urine Cocaine Screen U Marijuana (THC) Screen 11/13/23 11/13/23 05:09 11:15 MCV 93.7 MCH 29.8 MCHC 31.8 RDW 13.3 Plt Count 215 MPV 9.3 L Immature Gran % (Auto) 0.2 Neut % (Auto) 76.1 H Lymph % (Auto) 5.9 L [place] % (Auto) 17.6 H Eos % (Auto) 0.0 Baso % (Auto) 0.2 Lymph # (Auto) 0.3 L [place] # (Auto) 0.9 Eos # (Auto) 0.0 Baso # (Auto) 0.0 Abs Immat Gran (auto) 0.01 Absolute Neuts (auto) 3.7 Absolute Nucleated RBC 0.000 Nucleated RBC % (auto) 0.0 VBG pH VBG pCO2 VBG pO2 VBG HCO3 VBG O2 Saturation VBG Base Excess Anion Gap 15 Estim Creat Clear Calc 93.9 Estimated GFR > 60 Random Glucose 135 H Calcium 9.0 Troponin I High Sens B-Natriuretic Peptide Urine Opiates Screen Not Detected Ur Buprenorphine Scrn Not Detected Ur Oxycodone Screen Not Detected Urine Methadone Screen Not Detected Urine Fentanyl Screen POSITIVE H Ur Barbiturates Screen Not Detected Ur Phencyclidine Scrn Not Detected Ur Amphetamines Screen Not Detected U Benzodiazepines Scrn Not Detected Urine Cocaine Screen Not Detected U Marijuana (THC) Screen Not Detected Assessment and Plan (1) Opioid use disorder: Status: Acute (2) Chronic respiratory failure with hypoxia: Status: Acute (3) Congestive heart failure: Status: Acute (4) Acute exacerbation of chronic obstructive airways disease: Status: Acute Plan 57-year-old female with pertinent history of chronic hypoxic respiratory failure due to COPD on baseline 2 L supplemental oxygen, congestive heart failure with unspecified EF, mood disorder, heroin use disorder who presents to the emergency department for evaluation of dyspnea. #. Acute on chronic hypoxemic and hypercarbic respiratory failure due to decompensated CHF + exacerbation of COPD: On baseline 2 L supplemental oxygen. Currently requiring 4-5 L in the ER. VBG showed pH 7.3/pCO2 84 and bicarb 42 /treated in ED with bipap , repeat VBG showed improved PH, wean oxygen as tolerated to keep finger oximetry 89-90% will add diamox 250mg bid x 3 days. #. Acute decompensated congestive heart failure, unspecified EF: Shortness of breath improved /appears euvolemic/-1200 ml/ dc IV Lasix, monitor clinical status and use diuretics as needed Follow echo/Strict I's and O's/ Low-salt diet #. Acute exacerbation of COPD: Continue Scheduled and p.r.n. DuoNebs, IV Solu-Medrol 40 q.12. Continue home inhalers. # tobacco use disorder will place on nicotine patch 14 mg daily, counseling done. #. Heroin use disorder: Urine toxicology positive for fentanyl, Consulted Addiction Team, received 1 dose of methadone, COWS q shift. #. Mood disorder: Will resume home medications venlafaxine and mirtazapine. # right hand 4th and 5th finger communited fracture, seen by Orthopedic surgery they recommend to continue lucinda tape and follow up with ortho in 2-3 weeks/as needed analgesics. DVT prophylaxis: Lovenox Full code Continue inpatient hospitalization Admit as inpatient and will require two night minimum hospital stay for supplemental oxygen, IV steroids, IV diuresis (as above), which is not possible in a lesser acute setting. Quality Stroke Does the patient have a stroke diagnosis?: No VTE Prior VTE?: No VTE Risk Level:: Medical - moderate - high VTE Device Contraindication: Treatment Not Indicated VTE Drug Contraindication: N/A - Med Ordered
--- NOTE | 2023-11-13 12:22 | PM.CNOR ---
History of Present Illness HPI Consult date: 11/13/23 Chief complaint: Dyspnea Narrative: 57 years old with past medical history of COPD on 2/3 L of oxygen at home, opiate use disorder active, presented to the emergency room sent by her primary care doctor for shortness of breath and was admitted to the medical service. She was also c/o finger pain and orthopedics was consulted based off xr for fracture. Review of Systems Review of Systems: Yes all other systems are reviewed and are negative PMFSH Past Medical History Medical History Mood disorder Opioid use disorder Chronic respiratory failure with hypoxia Congestive heart failure Social History Social History Household Members: Significant Other Housing: House Do you presently have visiting nurse or other home services: No Patient Tobacco Use Status: Former Tobacco user Substance Use Type: Heroin service: No Meds Allergies Allergy/AdvReac Type Severity Reaction Status Date / Time No Known Allergies Allergy Verified 11/12/23 16:49 Environmental Allergy Unknown Unknown Uncoded 11/12/23 16:49 Active Medications: Current Medications Acetaminophen (Acetaminophen 325 Mg Tablet) 650 mg PO Q6H PRN PRN Reason: Pain, Mild (Pain Scale 1-3) Last Admin: 11/13/23 07:26 Dose: 650 mg Acetazolamide (Acetazolamide 250 Mg Tablet) 250 mg PO BID [facility] Stop: 11/16/23 09:01 Albuterol/Ipratropium (Albuterol/Iprat 2.5/0.5mg 3 Ml Ampul.Neb) 3 ml INHALE RQ4H WHILE AWAKE [facility] Last Admin: 11/13/23 11:12 Dose: 3 ml Albuterol/Ipratropium (Albuterol/Iprat 2.5/0.5mg 3 Ml Ampul.Neb) 3 ml INHALE Q4H PRN PRN Reason: Wheezing Last Admin: 11/12/23 23:54 Dose: 3 ml Enoxaparin Sodium (Enoxaparin Sodium 40 Mg/0.4 Ml Syringe) 40 mg SUBCUT Q24H [facility] Last Admin: 11/12/23 21:28 Dose: 40 mg Fluticasone/Vilanterol (Fluticasone/Vilanterol 200/25 Blst.W.Dev) 1 puff INHALE RDAILY [facility] Last Admin: 11/13/23 09:13 Dose: Not Given Melatonin (Melatonin 3 Mg Tablet) 6 mg PO BEDTIME PRN PRN Reason: Insomnia Methylprednisolone Sodium Succinate (Methylprednisolone Sod Succ 40 Mg/Ml Vial) 40 mg IVPUSH Q12H [facility] Last Admin: 11/13/23 07:28 Dose: 40 mg Mirtazapine (Mirtazapine 7.5 Mg Tablet) 7.5 mg PO BEDTIME [facility] Nicotine (Nicotine 14 Mg Patch.Td24) 14 mg TRANSDERMA DAILY [facility] Ondansetron HCl (Ondansetron Hcl 4 Mg/2 Ml Vial) 4 mg IVPUSH Q8H PRN PRN Reason: Nausea and Vomiting Sodium Chloride (0.9 % Sodium Chloride Flush 3 Ml Syringe) 3 ml IVFLUSH QSHIFT [facility] Last Admin: 11/13/23 07:32 Dose: Not Given Venlafaxine HCl (Venlafaxine Hcl Er 150 Mg Cap.Er.24h) 150 mg PO DAILY [facility] Last Admin: 11/13/23 09:26 Dose: 150 mg Venlafaxine HCl (Venlafaxine Hcl Er 37.5 Mg Cap.Er.24h) 37.5 mg PO DAILY [facility] Last Admin: 11/13/23 09:26 Dose: 37.5 mg Home Medications ?Medication ?Instructions ?Recorded ?Confirmed ?Last Taken ?Type albuterol sulfate 90 mcg/actuation 2 puff inhalation QID wheezing 11/12/23 11/12/23 11/12/23 History aerosol inhaler alendronate 70 mg tablet 70 mg PO SA 11/12/23 11/12/23 11/12/23 History fluticasone furoate 200 1 ea inhalation DAILY 11/12/23 11/12/23 11/12/23 History mcg-vilanterol 25 mcg/dose inhalation powder (Breo Ellipta) mirtazapine 7.5 mg tablet 7.5 mg PO BEDTIME insomnia 11/12/23 11/12/23 11/12/23 History umeclidinium 62.5 mcg/actuation 1 inh inhalation DAILY 11/12/23 11/12/23 11/12/23 History blister powder for inhalation (Incruse Ellipta) venlafaxine 150 mg 150 mg PO DAILY 11/12/23 11/12/23 11/12/23 History capsule,extended release 24 hr venlafaxine 37.5 mg 37.5 mg PO DAILY 11/12/23 11/12/23 11/12/23 History capsule,extended release 24 hr Physical Exam Vital Signs: Vital Signs: Last Vital Signs Temp 98.1 F 11/13/23 07:19 Pulse 69 11/13/23 11:12 Resp 17 11/13/23 11:12 BP 149/96 H 11/13/23 07:27 Pulse Ox 93 11/13/23 07:19 O2 Del Method Oxymask 11/13/23 07:19 O2 Flow Rate 2 11/13/23 07:19 Oxygen Flow Rate 4 11/12/23 16:44 BMI result Body Mass Index 23.2 Extrem: Other: Right hand normal to inspection 4th and 5th digits are lucinda taped. She has mild tenderness. Able to make a fist NVI Results Labs 11/13/23 05:09 11/17/23 09:50 Labs: Abnormal lab results 11/12/23 11/12/23 11/12/23 Range/Units 17:06 17:36 20:26 Hgb 16.1 H (12.0-16.0) g/dl Hct 52.5 H (37.0-47.0) % MCHC 30.7 L (31.0-35.0) g/dl MPV (9.4-12.3) fL Immature Gran % (Auto) 0.5 H (0.0-0.4) % Neut % (Auto) 74.4 H (45-73) % Lymph % (Auto) 12.0 L (20-40) % [place] % (Auto) 12.8 H (2-11) % Lymph # (Auto) 0.7 L (1.2-4.9) X10*3/uL VBG pH 7.30 L (7.32-7.43) VBG HCO3 42 H 50 H (22-26) mmol/L Chloride 93 L (96-108) mmol/L Carbon Dioxide 36 H (22-29) mmol/L Random Glucose (60-115) mg/dL B-Natriuretic Peptide 209 H (<100) pg/mL Urine Fentanyl Screen (Not Detect) 11/13/23 11/13/23 Range/Units 05:09 11:15 Hgb (12.0-16.0) g/dl Hct 50.3 H (37.0-47.0) % MCHC (31.0-35.0) g/dl MPV 9.3 L (9.4-12.3) fL Immature Gran % (Auto) (0.0-0.4) % Neut % (Auto) 76.1 H (45-73) % Lymph % (Auto) 5.9 L (20-40) % [place] % (Auto) 17.6 H (2-11) % Lymph # (Auto) 0.3 L (1.2-4.9) X10*3/uL VBG pH (7.32-7.43) VBG HCO3 (22-26) mmol/L Chloride 88 L (96-108) mmol/L Carbon Dioxide 40 H* (22-29) mmol/L Random Glucose 135 H (60-115) mg/dL B-Natriuretic Peptide (<100) pg/mL Urine Fentanyl Screen POSITIVE H (Not Detect) H & H 11/12/23 11/13/23 Range/Units 17:06 05:09 Hgb 16.1 H 16.0 (12.0-16.0) g/dl Hct 52.5 H 50.3 H (37.0-47.0) % All other labs normal. Diagnostic results Wrist/Hand x-ray: image reviewed (XR hand RT 2V IMPRESSION: Nondisplaced comminuted intra-articular fractures of the proximal phalanges of the fourth and fifth fingers with surrounding soft tissue swelling.) Assessment and Plan (1) Finger fracture, right: Status: Acute Plan No surgical intervention lucinda taping 4th and 5th ok ROM ok no lifting f.u in clinic 2-3 weeks w xrays Procedures Date of Service Date of Service: 11/19/23
[2023-11-13] MEDS: Nicotine 14 MG PATCH.TD24 TRANSDERMA (12:30)
--- NOTE | 2023-11-13 12:33 | PC.NURSE ---
security called to bedside to check pt's belongings. security confiscated some drug material. Pt calm and cooperative. belongings cleared by security
--- NOTE | 2023-11-13 21:32 | PC.NURSE ---
pt reports she feels as she is withdrawing and is experiencing 8/10 generalized body aches. pt denies other complaints at this time. Dr. Tovar aware. will attempt PRN methadone and reassess pain.
[2023-11-13] MEDS: methADONE HCl 20 MG/2 ML ORAL.CONC 5 MG PO (21:49)
[2023-11-13] MEDS: Mirtazapine 7.5 MG TABLET PO (21:49)
--- NOTE | 2023-11-13 22:18 | PC.NURSE ---
diamox unavailable in pyxis. 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
[2023-11-14] VITALS (11 sets, daily range): BP systolic 116–156; BP diastolic 70–102; PULSE 88–114; RESP 16–28; TEMP 36.1–36.6; O2SAT 89–95
[2023-11-14] MEDS: acetaZOLAMIDE 250 MG TABLET PO
--- NOTE | 2023-11-14 00:13 | PC.NURSE ---
pt continues to report generalized body aches now, gave prn methadone without improvement. tylenol is not due at this time, Dr. Tovar aware.
[2023-11-14] MEDS: 0.9 % Sodium Chloride Flush 3 ML SYRINGE IVFLUSH ×4 (00:57→19:29)
[2023-11-14] MEDS: Acetaminophen 325 MG TABLET 650 MG PO ×3 (03:18→18:35)
[2023-11-14 07:06] LABS: Anion Gap 18 (12-20); Blood Urea Nitrogen 12 mg/dL (9-16); Calcium 9.7 mg/dL (8.4-10.2); Carbon Dioxide 26 mmol/L (22-29); Chloride 89 mmol/L (96-108); Creatinine Clr Calc Pharmacy 95.6; Estimated Glomerular Filt Rate > 60; Glucose Random 142 mg/dL (60-115); Potassium 3.3 mmol/L (3.3-5.1); Sodium 130 mmol/L (135-145)
[2023-11-14] MEDS: Fluticasone/Vilanterol 200/25 BLST.W.DEV 1 PUFF INHALE (07:37)
[2023-11-14] MEDS: Albuterol/Iprat 2.5/0.5MG 3 ML AMPUL.NEB INHALE ×4 (07:37→19:45)
[2023-11-14] MEDS: methylPREDNISolone Sod Succ 40 MG/ML VIAL IVPUSH (08:26)
[2023-11-14] MEDS: Nicotine 14 MG PATCH.TD24 TRANSDERMA (08:26)
[2023-11-14] MEDS: Venlafaxine HCl ER 150 MG CAP.ER.24H PO (08:28)
[2023-11-14] MEDS: methADONE HCl 20 MG/2 ML ORAL.CONC 40 MG PO (08:28)
[2023-11-14] MEDS: Venlafaxine HCl ER 37.5 MG CAP.ER.24H PO (08:28)
--- NOTE | 2023-11-14 10:11 | MHC.CM.PN ---
IMM 11/14/23, EMR REVIEWED, CM MET W/PT WHO REPORTS SHE LIVES W/HER S.O., IS INDEP W/ALL CARE, DENIES USE OF DME/SERVICES. PT STARTED ON METHADONE BY RECOVERY PROVIDER, PT ASKING T/W IF SHE COULD SPEAK W/SOMEONE ABOUT SWITCHING FROM METHADONE THAT SHE WAS JUST STARTED ON TO SUBOXONE SHE DOESN'T WANT TO GO TO A CLINIC EVERY DAY, RECOVERY PROVIDER MADE AWARE VIA Food and Beverage. PT VERIFIES PCP IS DR. RINCON AND HAS BEEN EDUCATED ON AND DECLINES TO COMPLETE A HCP.
--- NOTE | 2023-11-14 12:18 | P.PNIM_ITS ---
Subjective Subjective Date of Service: 11/14/23 Interval History: breathing improved on methadone now Review of Systems Review of Systems: Yes all other systems are reviewed and are negative Physical Exam 2 Vital Signs: Vital Signs: Last Vital Signs Temp 98 F 11/14/23 06:52 Pulse 113 H 11/14/23 11:07 Resp 18 11/14/23 11:07 BP 126/70 11/14/23 06:52 Pulse Ox 94 11/14/23 06:52 O2 Del Method Nasal Cannula 11/14/23 06:52 O2 Flow Rate 2 11/14/23 06:52 Oxygen Flow Rate 4 11/12/23 16:44 BMI result Body Mass Index 23.2 Gen: in no acute distress but slightly tachypneic HEENT: sclera anicteric, moist mucus membranes Neck: supple Lungs: diminished Heart: regular, tachyardic, no murmurs Abd: soft, non-tender, non-distended Ext: no edema Skin: warm/well-perfused Neuro: alert and oriented x3, no focal findings Psych: appropriate affect Objective Data Active Medications Acetaminophen (Acetaminophen 325 Mg Tablet) 650 mg PO Q6H PRN PRN Reason: Pain, Mild (Pain Scale 1-3) Last Admin: 11/14/23 09:26 Dose: 650 mg Documented By: FABRICE Albuterol/Ipratropium (Albuterol/Iprat 2.5/0.5mg 3 Ml Ampul.Neb) 3 ml INHALE RQ4H WHILE AWAKE [facility] Last Admin: 11/14/23 11:06 Dose: 3 ml Documented By: ALEXANDRO Albuterol/Ipratropium (Albuterol/Iprat 2.5/0.5mg 3 Ml Ampul.Neb) 3 ml INHALE Q4H PRN PRN Reason: Wheezing Last Admin: 11/12/23 23:54 Dose: 3 ml Documented By: VISHAL Enoxaparin Sodium (Enoxaparin Sodium 40 Mg/0.4 Ml Syringe) 40 mg SUBCUT Q24H [facility] Last Admin: 11/13/23 21:50 Dose: Not Given Documented By: RICK Non-Admin Reason: Patient Refused Fluticasone/Vilanterol (Fluticasone/Vilanterol 200/25 Blst.W.Dev) 1 puff INHALE RDAILY [facility] Last Admin: 11/14/23 07:37 Dose: 1 puff Documented By: ALEXANDRO Melatonin (Melatonin 3 Mg Tablet) 6 mg PO BEDTIME PRN PRN Reason: Insomnia Methadone HCl (Methadone Hcl 20 Mg/2 Ml Oral.Conc) 40 mg PO DAILY [facility] Last Admin: 11/14/23 08:28 Dose: 40 mg Documented By: FABRICE Methadone HCl (Methadone Hcl 20 Mg/2 Ml Oral.Conc) 5 mg PO DAILY PRN PRN Reason: Opiate Withdrawal Last Admin: 11/13/23 21:49 Dose: 5 mg Documented By: RICK Methylprednisolone Sodium Succinate (Methylprednisolone Sod Succ 40 Mg/Ml Vial) 40 mg IVPUSH Q12H [facility] Last Admin: 11/14/23 08:26 Dose: 40 mg Documented By: FABRICE Mirtazapine (Mirtazapine 7.5 Mg Tablet) 7.5 mg PO BEDTIME [facility] Last Admin: 11/13/23 21:49 Dose: 7.5 mg Documented By: RICK Nicotine (Nicotine 14 Mg Patch.Td24) 14 mg TRANSDERMA DAILY [facility] Last Admin: 11/14/23 08:26 Dose: 14 mg Documented By: FABRICE Ondansetron HCl (Ondansetron Hcl 4 Mg/2 Ml Vial) 4 mg IVPUSH Q8H PRN PRN Reason: Nausea and Vomiting Sodium Chloride (0.9 % Sodium Chloride Flush 3 Ml Syringe) 3 ml IVFLUSH QSHIFT [facility] Last Admin: 11/14/23 08:30 Dose: 3 ml Documented By: FABRICE Venlafaxine HCl (Venlafaxine Hcl Er 150 Mg Cap.Er.24h) 150 mg PO DAILY [facility] Last Admin: 11/14/23 08:28 Dose: 150 mg Documented By: FABRICE Venlafaxine HCl (Venlafaxine Hcl Er 37.5 Mg Cap.Er.24h) 37.5 mg PO DAILY [facility] Last Admin: 11/14/23 08:28 Dose: 37.5 mg Documented By: FABRICE Labs 11/13/23 05:09 11/14/23 05:50 Labs: Laboratory Results - last 24 hr 11/14/23 05:50 Hold Purple Top SEE NOTE Anion Gap 18 Estim Creat Clear Calc 95.6 Estimated GFR > 60 Random Glucose 142 H Calcium 9.7 D Assessment and Plan (1) Opioid use disorder: Status: Acute (2) Chronic respiratory failure with hypoxia: Status: Acute (3) Congestive heart failure: Status: Acute (4) Acute exacerbation of chronic obstructive airways disease: Status: Acute Plan d3 57yo F with COPD on 2L O2, HF with unknown EF, mood disorder, heroin use disorder presented with dyspnea, admitted for hypoxia acute/chronic hypoxic/hypercarbic resp failure - back on home O2 2L [required 4-5 L in ED] - bicarbonate normalized, d/c acetazolamide [gt only 1 dose], repeat BMP/VBG in AM ADHF - negative 1800 mL, TTE pending, off IV furosemide COPD exac - taper IV methylprednisolone, continue scheduled + prn nebs tobacco abuse disorder - NRT heroin use disorder - now on methadone per Addiction Medicine mood disorder - continue venlafaxine + mirtazpine R 4th/5th finger fractures - continue taping, outpt f/u in 2 wk VTE ppx - LMWH dispo - anticipate home perhaps in next 1-2d In my clinical judgment, the patient requires continued inpatient hospitalization for the following reasons: COPD tx, HF workup Total time managing care of this patient today: 35 minutes. Quality Stroke Does the patient have a stroke diagnosis?: No VTE Prior VTE?: No VTE Risk Level:: Medical - moderate - high VTE Device Contraindication: Treatment Not Indicated VTE Drug Contraindication: N/A - Med Ordered
--- NOTE | 2023-11-14 16:05 | P.PNADD_ITS ---
Subjective Subjective Date of Service: 11/14/23 Reason For Visit: Dyspnea Interim History: Patient seen in follow up Appearing much less anxious and restless She reports withdrawal sx are managed with current dose Feeling anxious about discharge --requesting to transition suboxone (mainly due to transportation and overall difficulty with ambulation). She lives with her significant other and he is unaware of her substance use--she does not wish to share it with him either. She expressed gratitude for starting [facility] and reports she has been wanting to stop but did not know how. She is eating when seen by this magazine writer and appears SOB when speaking. Review of Systems Acute medical concerns: Yes Medical Review of Systems: unchanged Review of Systems Constitutional: Reports as per HPI Mental Status Exam Mental Status Exam Patient Appearance: Appropriate Level of Consciousness: Awake, Appropriate and Alert Mood Description: Anxious Affect Description: Anxious Patient Cognition Impaired: No Diagnostics Vital Signs (24Hr): Vital Signs - 24 hr 11/13/23 16:22 11/13/23 18:28 11/13/23 18:44 Temperature 98.2 F 98.3 F Pulse Rate 78 89 81 Respiratory Rate 15 16 16 Blood Pressure 180/115 H 163/102 H Pulse Oximetry 90 L 92 Oxygen Delivery Method Nasal Cannula Nasal Cannula Oxygen Flow Rate 2 2 11/13/23 22:34 11/14/23 00:48 11/14/23 03:16 Temperature 98.7 F 97.7 F 97 F Pulse Rate 88 88 96 Respiratory Rate 16 18 18 Blood Pressure 170/109 H 156/102 H 142/100 H Pulse Oximetry 94 92 95 Oxygen Delivery Method Nasal Cannula Nasal Cannula Nasal Cannula Oxygen Flow Rate 2 2 2 11/14/23 06:52 11/14/23 07:40 11/14/23 11:07 Temperature 98 F Pulse Rate 98 114 H 113 H Respiratory Rate 17 16 18 Blood Pressure 126/70 Pulse Oximetry 94 Oxygen Delivery Method Nasal Cannula Oxygen Flow Rate 2 11/14/23 15:17 11/14/23 16:00 Temperature 96.9 F Pulse Rate 114 H 110 H Respiratory Rate 20 28 H Blood Pressure 116/80 Pulse Oximetry 92 Oxygen Delivery Method Nasal Cannula Oxygen Flow Rate 2 BMI result Body Mass Index 23.2 Labs 11/13/23 05:09 11/14/23 05:50 Labs: Laboratory Results - last 48 hr 11/12/23 11/12/23 11/12/23 17:06 17:36 20:26 WBC 6.1 RBC 5.46 Hgb 16.1 H Hct 52.5 H MCV 96.2 MCH 29.5 MCHC 30.7 L RDW 13.5 Plt Count 213 MPV 9.5 Immature Gran % (Auto) 0.5 H Neut % (Auto) 74.4 H Lymph % (Auto) 12.0 L Eddy % (Auto) 12.8 H Eos % (Auto) 0.0 Baso % (Auto) 0.3 Lymph # (Auto) 0.7 L Eddy # (Auto) 0.8 Eos # (Auto) 0.0 Baso # (Auto) 0.0 Abs Immat Gran (auto) 0.03 Absolute Neuts (auto) 4.5 Absolute Nucleated RBC 0.000 Nucleated RBC % (auto) 0.0 Hold Purple Top VBG pH 7.30 L 7.37 VBG pCO2 84 86 VBG pO2 90 78 VBG HCO3 42 H 50 H VBG O2 Saturation 99.0 97.0 VBG Base Excess 11.0 18.7 Sodium 139 Potassium 4.8 Chloride 93 L Carbon Dioxide 36 H Anion Gap 15 BUN 11 Creatinine 0.54 Estim Creat Clear Calc 93.9 Estimated GFR > 60 Random Glucose 94 Calcium 9.3 Troponin I High Sens < 2.7 B-Natriuretic Peptide 209 H Urine Opiates Screen Ur Buprenorphine Scrn Ur Oxycodone Screen Urine Methadone Screen Urine Fentanyl Screen Ur Barbiturates Screen Ur Phencyclidine Scrn Ur Amphetamines Screen U Benzodiazepines Scrn Urine Cocaine Screen U Marijuana (THC) Screen 11/13/23 11/13/23 11/14/23 05:09 11:15 05:50 WBC 4.9 RBC 5.37 Hgb 16.0 Hct 50.3 H MCV 93.7 MCH 29.8 MCHC 31.8 RDW 13.3 Plt Count 215 MPV 9.3 L Immature Gran % (Auto) 0.2 Neut % (Auto) 76.1 H Lymph % (Auto) 5.9 L Eddy % (Auto) 17.6 H Eos % (Auto) 0.0 Baso % (Auto) 0.2 Lymph # (Auto) 0.3 L Eddy # (Auto) 0.9 Eos # (Auto) 0.0 Baso # (Auto) 0.0 Abs Immat Gran (auto) 0.01 Absolute Neuts (auto) 3.7 Absolute Nucleated RBC 0.000 Nucleated RBC % (auto) 0.0 Hold Purple Top SEE NOTE VBG pH VBG pCO2 VBG pO2 VBG HCO3 VBG O2 Saturation VBG Base Excess Sodium 139 130 L Potassium 3.7 D 3.3 Chloride 88 L 89 L Carbon Dioxide 40 H* 26 Anion Gap 15 18 BUN 12 12 Creatinine 0.54 0.53 Estim Creat Clear Calc 93.9 95.6 Estimated GFR > 60 > 60 Random Glucose 135 H 142 H Calcium 9.0 9.7 D Troponin I High Sens B-Natriuretic Peptide Urine Opiates Screen Not Detected Ur Buprenorphine Scrn Not Detected Ur Oxycodone Screen Not Detected Urine Methadone Screen Not Detected Urine Fentanyl Screen POSITIVE H Ur Barbiturates Screen Not Detected Ur Phencyclidine Scrn Not Detected Ur Amphetamines Screen Not Detected U Benzodiazepines Scrn Not Detected Urine Cocaine Screen Not Detected U Marijuana (THC) Screen Not Detected Imaging Radiology Impressions: ITS Impressions Chest X-Ray 11/12/23 17:32 IMPRESSION: 1. Pulmonary vascular congestion. 2. Diffuse interstitial opacification could be interstitial edema, cannot rule out underlying superimposed infiltrates. 3. No significant pleural effusion. 4. Prominent augusto bilaterally could be vascular. Attention to follow-up chest PA and lateral recommended after patient's symptoms improved. Hand X-Ray 11/12/23 17:32 IMPRESSION: Nondisplaced comminuted intra-articular fractures of the proximal phalanges of the fourth and fifth fingers with surrounding soft tissue swelling. Medications Medications Current Medications Acetaminophen (Acetaminophen 325 Mg Tablet) 650 mg PO Q6H PRN PRN Reason: Pain, Mild (Pain Scale 1-3) Last Admin: 11/14/23 09:26 Dose: 650 mg Albuterol/Ipratropium (Albuterol/Iprat 2.5/0.5mg 3 Ml Ampul.Neb) 3 ml INHALE RQ4H WHILE AWAKE [facility] Last Admin: 11/14/23 15:15 Dose: 3 ml Albuterol/Ipratropium (Albuterol/Iprat 2.5/0.5mg 3 Ml Ampul.Neb) 3 ml INHALE Q4H PRN PRN Reason: Wheezing Last Admin: 11/12/23 23:54 Dose: 3 ml Enoxaparin Sodium (Enoxaparin Sodium 40 Mg/0.4 Ml Syringe) 40 mg SUBCUT Q24H [facility] Last Admin: 11/13/23 21:50 Dose: Not Given Fluticasone/Vilanterol (Fluticasone/Vilanterol 200/25 Blst.W.Dev) 1 puff INHALE RDAILY [facility] Last Admin: 11/14/23 07:37 Dose: 1 puff Melatonin (Melatonin 3 Mg Tablet) 6 mg PO BEDTIME PRN PRN Reason: Insomnia Methadone HCl (Methadone Hcl 20 Mg/2 Ml Oral.Conc) 40 mg PO DAILY [facility] Last Admin: 11/14/23 08:28 Dose: 40 mg Methadone HCl (Methadone Hcl 20 Mg/2 Ml Oral.Conc) 5 mg PO DAILY PRN PRN Reason: Opiate Withdrawal Last Admin: 11/13/23 21:49 Dose: 5 mg Methylprednisolone Sodium Succinate (Methylprednisolone Sod Succ 40 Mg/Ml Vial) 40 mg IVPUSH Q24H [facility] Mirtazapine (Mirtazapine 7.5 Mg Tablet) 7.5 mg PO BEDTIME [facility] Last Admin: 11/13/23 21:49 Dose: 7.5 mg Nicotine (Nicotine 14 Mg Patch.Td24) 14 mg TRANSDERMA DAILY [facility] Last Admin: 11/14/23 08:26 Dose: 14 mg Ondansetron HCl (Ondansetron Hcl 4 Mg/2 Ml Vial) 4 mg IVPUSH Q8H PRN PRN Reason: Nausea and Vomiting Sodium Chloride (0.9 % Sodium Chloride Flush 3 Ml Syringe) 3 ml IVFLUSH QSHIFT [facility] Last Admin: 11/14/23 08:30 Dose: 3 ml Venlafaxine HCl (Venlafaxine Hcl Er 150 Mg Cap.Er.24h) 150 mg PO DAILY [facility] Last Admin: 11/14/23 08:28 Dose: 150 mg Venlafaxine HCl (Venlafaxine Hcl Er 37.5 Mg Cap.Er.24h) 37.5 mg PO DAILY [facility] Last Admin: 11/14/23 08:28 Dose: 37.5 mg Allergies Allergies Allergy/AdvReac Type Severity Reaction Status Date / Time No Known Allergies Allergy Verified 11/12/23 16:49 Environmental Allergy Unknown Unknown Uncoded 11/12/23 16:49 Assessment & Plan Assessment & Plan (1) Opioid use disorder: Status: Acute Code(s): F11.90 - Opioid use, unspecified, uncomplicated Assessment and Plan: * would like to transition to suboxone as methadone is a challenge related to transportation * suboxone 0.5mg at 6am must be BEFORE methadone dose * methadone 40mg at 8am * transition will likely take 3-4 days as suboxone dose is increased and methadone decreased/discontinued Total time managing care of this patient today __30__ minutes.
[2023-11-14] MEDS: Melatonin 3 MG TABLET 6 MG PO (19:27)
[2023-11-14] MEDS: Mirtazapine 7.5 MG TABLET PO (19:27)
[2023-11-14] MEDS: Enoxaparin Sodium 40 MG/0.4 ML SYRINGE SUBCUT (19:28)
--- NOTE | 2023-11-14 19:45 | MHC.PIE ---
p; pt c/o withdraw pain, pt noted visibly shaking/tremors, cold sweat and anxious.note; pt reports use of drugs and pt given methadone on AM shift and suboxone to start in AM i; dr washington notified. e; will cont to monitor
[2023-11-15] VITALS (10 sets, daily range): BP systolic 110–130; BP diastolic 75–87; PULSE 98–112; RESP 14–24; TEMP 36.3–36.8; O2SAT 89–95
[2023-11-15] MEDS: LORazepam 1 MG TABLET PO (00:31)
--- NOTE | 2023-11-15 00:33 | MHC.PIE ---
p; pt c/o anxiety asking for anti anxiety med i; dr washington notified e; will cont to monitor
[2023-11-15 05:37] LABS: Venous Blood Gas Refer to POC result
[2023-11-15 05:42] LABS: VBG Base Excess 2.3 mmol/L; VBG HCO3 22 mmol/L (22-26); VBG pCO2 25 mmHg; VBG pH 7.54 (7.32-7.43); VBG pO2 227 mmHg
[2023-11-15] MEDS: Buprenorphine/Naloxone 2/0.5mg FILM 0.25 FILM SUBLINGUAL (06:18)
--- NOTE | 2023-11-15 07:00 | CA_ITS ---
Transthoracic Echocardiogram Amended Patient (Last, First, Middle): David Nicole M Gender: Female Date of : 1965 Age: 57 Procedure Date: 11/15/2023 Procedure Type: Transthoracic Echocardiogram Location: S3E Height: 160.02 cm Weight: 59.42 kg BSA: 1.62 m2 Heart Rate: bpm BP: 130 / 86 mmHg Family Practice Md: GREG Moses MD: Luis Tovar MD Care Director Rn: Mitch Fonseca MD Symptoms: CHF Study Quality: Adequate, contrast ECG Rhythm: Sinus Conclusions: - 1. Severely reduced LV ejection fraction of 25-30% with wall motion abnormality multiple territories could represent stress induced cardiomyopathy with possible LV thrombus 2. Normal cardiac valvular Doppler 3. Normal RV systolic pressure 4. Upper limits of normal ascending aortic size 5. No gross pericardial effusion Findings Procedure Information Contrast agent, definity, is being given per protocol without apparent complications. Left Ventricle Normal left ventricular cavity size. There is normal left ventricular wall thickness. The left ventricular systolic function is severely decreased. The visually estimated ejection fraction is between 25-30%. Spectral Doppler is indicative of an impaired relaxation filling pattern. E/E prime ratio is between 8 and 15 consistent with indeterminate filling pressures. On off axis 2 chamber views at the distal septal there appears to be mobile structure attached with underlying akinetic segment. This possibly could represent a thrombus although accessory papillary muscle is also a likelihood. Consider alternative imaging technique Wall Motion Rest Echo Findings The entire apex, the mid anterior, mid inferior, mid anterolateral, mid inferoseptal, mid anteroseptal, and mid inferolateral segments are akinetic. All other scored wall segments showed normal motion. Right Ventricle Normal right ventricular cavity size and systolic function. Atria The left atrium is mildly dilated. Interatrial shunt cannot be excluded. The right atrium is normal in size. Aortic Valve Normal aortic valve structure and function. There is no aortic valve stenosis. There is no aortic valve regurgitation. Mitral Valve Normal mitral valve structure and function. There is trace mitral valve regurgitation. There is no mitral valve stenosis. Pulmonic Valve The pulmonic valve was not well visualized. Tricuspid Valve Normal tricuspid valve structure. There is mild tricuspid valve regurgitation. The right ventricular systolic pressure is normal. The right ventricular systolic pressure is 22 mmHg. Normal right atrial pressure. There is no evidence of pulmonary hypertension. Great Vessels The pulmonary artery was not well visualized. There is no evidence of plaque in the aorta. Venous The inferior vena cava is normal in size and collapses greater than 50% with inspiration. Pericardium/Pleural There is no evidence of pericardial effusion. Measurements 2D Linear Measurements IVSd: 0.97 0.6-0.9/0.6-1.0 cm LVIDd: 4.83 3.9-5.3/4.2-5.9 cm LVIDd Index: 2.98 2.4-3.2/2.2-3.1 cm/m2 LVIDs: 4.15 2.0-3.6 cm LVPWd: 1.16 0.7-1.1 cm Ao Root: 3.50 2.1-3.5 cm LA Diam: 3.40 2.7-3.8/3.0-4.0 cm LAIDs Index: 2.10 1.5-2.3 cm/m2 LV Mass: 233.30 67-162/88-224 g LV Mass Index: 144.01 43-95/49-115 g/m2 LVOT Diam: 1.90 3.0+(-)1.3 cm 2D Volumes LA Vol: 33.00 2D Systolic Function EF 4C: 33.00 >55% EF 2C: 25.00 >55% EF BiP: 28.10 >55% Mitral Valve MV Pk E: 0.46 MV PK A: 0.52 MV Decel Time: 166.00 E/A: 0.90 E'Lateral: 4.57 E'Medial: 3.15 E/E' Med: 14.60 E/E' Lat: 10.00 PHT: 49.00 MVA PHT: 4.49 Decel [place]: 2.76 Aortic Valve AoV Pk Taurus: 0.82 AoV Mn Taurus: 0.69 AoV VTI: 0.12 AoV Pk Grad: 3.00 Aov Mn Grad: 2.00 SUSIE Cont.VTI: 2.22 LVOT LVOT Pk Taurus: 0.76 LVOT Mn Taurus: 0.52 LVOT VTI: 0.10 LVOT Pk Grad: 2.00 LVOT Mn Grad: 1.00 LVOT Diam: 1.90 LVOT Area: 2.84 Diastolic Function MV Pk E: 0.46 MV Pk A: 0.52 E/A: 0.90 E'Medial: 3.15 E/E' Med: 14.60 E' Laterial: 4.57 E/E' Lat: 10.00 Right Ventricle TAPSE (mm): 10.70 TVS' Taurus: 11.30 Tricuspid Valve TR Pk Taurus: 2.17 TR Pk Grad: 19.00 RA Press: 3.00 RVSP: 22.00 Great Vessels Aorta Ao Root-2D: 3.50 2.0-3.7 cm Sinus of Valsalva: 3.50 2.0-3.5 cm Ao Asc: 3.60 2.1-3.4 cm Pulmonary Valve PV Pk Taurus: 1.11 Peak PV Grad: 5.00 Updated in Other Vendor System with Status of Final Mitch Fonseca MD electronically signed on 11/15/2023 1:20:33 PM with status of Final
[2023-11-15] MEDS: Fluticasone/Vilanterol 200/25 BLST.W.DEV 1 PUFF INHALE (07:38)
[2023-11-15] MEDS: Albuterol/Iprat 2.5/0.5MG 3 ML AMPUL.NEB INHALE ×4 (07:38→19:53)
[2023-11-15] MEDS: Venlafaxine HCl ER 37.5 MG CAP.ER.24H PO (08:13)
[2023-11-15] MEDS: Venlafaxine HCl ER 150 MG CAP.ER.24H PO (08:13)
[2023-11-15] MEDS: methylPREDNISolone Sod Succ 40 MG/ML VIAL IVPUSH (08:13)
[2023-11-15] MEDS: Nicotine 14 MG PATCH.TD24 TRANSDERMA (08:14)
[2023-11-15] MEDS: 0.9 % Sodium Chloride Flush 3 ML SYRINGE IVFLUSH ×3 (08:14→19:49)
[2023-11-15] MEDS: methADONE HCl 20 MG/2 ML ORAL.CONC 40 MG PO (08:14)
[2023-11-15 09:14] LABS: Anion Gap 20 (12-20); Blood Urea Nitrogen 32 mg/dL (9-16); Calcium 10.6 mg/dL (8.4-10.2); Carbon Dioxide 27 mmol/L (22-29); Chloride 91 mmol/L (96-108); Creatinine Clr Calc Pharmacy 83.1; Estimated Glomerular Filt Rate > 60; Glucose Random 126 mg/dL (60-115); Magnesium 2.3 mg/dL (1.6-2.6); Potassium 3.8 mmol/L (3.3-5.1); Sodium 134 mmol/L (135-145)
[2023-11-15 09:18] LABS: B Type Natriuretic Peptide 4469 pg/mL (<100)
--- NOTE | 2023-11-15 11:45 | HO.PM.IMPN ---
Subjective Subjective Date of Service: 11/15/23 Interval History: a little short of breath but improved Review of Systems Review of Systems: Yes all other systems are reviewed and are negative Physical Exam Vital Signs: Vital Signs: Last Vital Signs Temp 97.9 F 11/15/23 07:14 Pulse 105 H 11/15/23 11:17 Resp 24 H 11/15/23 11:17 BP 125/87 11/15/23 07:14 Pulse Ox 92 11/15/23 07:14 O2 Del Method Nasal Cannula 11/15/23 07:14 O2 Flow Rate 2 11/15/23 07:14 Oxygen Flow Rate 4 11/12/23 16:44 BMI result Body Mass Index 23.2 Gen: in no acute distress but slightly tachypneic HEENT: sclera anicteric, moist mucus membranes Neck: supple Lungs: diminished Heart: regular, tachycardic, no murmurs Abd: soft, non-tender, non-distended Ext: no edema Skin: warm/well-perfused Neuro: alert and oriented x3, no focal findings Psych: appropriate affect Objective Data Active Medications Acetaminophen (Acetaminophen 325 Mg Tablet) 650 mg PO Q6H PRN PRN Reason: Pain, Mild (Pain Scale 1-3) Last Admin: 11/14/23 18:35 Dose: 650 mg Documented By: FABRICE Albuterol/Ipratropium (Albuterol/Iprat 2.5/0.5mg 3 Ml Ampul.Neb) 3 ml INHALE RQ4H WHILE AWAKE [facility] Last Admin: 11/15/23 11:16 Dose: 3 ml Documented By: DURGA Albuterol/Ipratropium (Albuterol/Iprat 2.5/0.5mg 3 Ml Ampul.Neb) 3 ml INHALE Q4H PRN PRN Reason: Wheezing Last Admin: 11/12/23 23:54 Dose: 3 ml Documented By: VISHAL Enoxaparin Sodium (Enoxaparin Sodium 40 Mg/0.4 Ml Syringe) 40 mg SUBCUT Q24H [facility] Last Admin: 11/14/23 19:28 Dose: 40 mg Documented By: CORDELIA Fluticasone/Vilanterol (Fluticasone/Vilanterol 200/25 Blst.W.Dev) 1 puff INHALE RDAILY [facility] Last Admin: 11/15/23 07:38 Dose: 1 puff Documented By: FELISHA Melatonin (Melatonin 3 Mg Tablet) 6 mg PO BEDTIME PRN PRN Reason: Insomnia Last Admin: 11/14/23 19:27 Dose: 6 mg Documented By: CORDELIA Methadone HCl (Methadone Hcl 20 Mg/2 Ml Oral.Conc) 40 mg PO DAILY [facility] Last Admin: 11/15/23 08:14 Dose: 40 mg Documented By: KARLA Mirtazapine (Mirtazapine 7.5 Mg Tablet) 7.5 mg PO BEDTIME [facility] Last Admin: 11/14/23 19:27 Dose: 7.5 mg Documented By: CORDELIA Nicotine (Nicotine 14 Mg Patch.Td24) 14 mg TRANSDERMA DAILY [facility] Last Admin: 11/15/23 08:14 Dose: 14 mg Documented By: KARLA Ondansetron HCl (Ondansetron Hcl 4 Mg/2 Ml Vial) 4 mg IVPUSH Q8H PRN PRN Reason: Nausea and Vomiting Prednisone (Prednisone 20 Mg Tablet) 40 mg PO DAILY [facility] Sodium Chloride (0.9 % Sodium Chloride Flush 3 Ml Syringe) 3 ml IVFLUSH QSHIFT [facility] Last Admin: 11/15/23 08:14 Dose: 3 ml Documented By: KARLA Venlafaxine HCl (Venlafaxine Hcl Er 150 Mg Cap.Er.24h) 150 mg PO DAILY [facility] Last Admin: 11/15/23 08:13 Dose: 150 mg Documented By: KARLA Venlafaxine HCl (Venlafaxine Hcl Er 37.5 Mg Cap.Er.24h) 37.5 mg PO DAILY [facility] Last Admin: 11/15/23 08:13 Dose: 37.5 mg Documented By: KARLA Labs 11/13/23 05:09 11/15/23 08:27 Labs: Laboratory Results - last 24 hr 11/15/23 11/15/23 05:36 08:27 VBG pH 7.54 H VBG pCO2 25 VBG pO2 227 VBG HCO3 22 VBG O2 Saturation 99.0 VBG Base Excess 2.3 Anion Gap 20 Estim Creat Clear Calc 83.1 Estimated GFR > 60 Random Glucose 126 H Calcium 10.6 H D Magnesium 2.3 B-Natriuretic Peptide 4469 H Assessment and Plan (1) Opioid use disorder: Status: Acute (2) Chronic respiratory failure with hypoxia: Status: Acute (3) Congestive heart failure: Status: Acute (4) Acute exacerbation of chronic obstructive airways disease: Status: Acute Plan d4 57yo F with COPD on 2L O2, HF with unknown EF, mood disorder, heroin use disorder presented with dyspnea, admitted for hypoxia acute/chronic hypoxic/hypercarbic resp failure - back on home O2 2L [required 4-5 L in ED] - bicarbonate normalized, d/c acetazolamide [gt only 1 dose] ADHF - negative 1800 mL, TTE pending, start PO furosemide, monitor BMP/Mg/BNP, I+O/wts COPD exac - change to PO prednisone, continue scheduled + prn nebs tobacco abuse disorder - NRT heroin use disorder - now on methadone per Addiction Medicine mood disorder - continue venlafaxine + mirtazpine R 4th/5th finger fractures - continue taping, outpt f/u in 2 wk VTE ppx - LMWH dispo - anticipate home perhaps tomorrow In my clinical judgment, the patient requires continued inpatient hospitalization for the following reasons: CHF workup, tachycardia/tachypnea Total time managing care of this patient today: 35 minutes. Quality Stroke Does the patient have a stroke diagnosis?: No VTE Prior VTE?: No VTE Risk Level:: Medical - moderate - high VTE Device Contraindication: Treatment Not Indicated VTE Drug Contraindication: N/A - Med Ordered
[2023-11-15] MEDS: Furosemide 40 MG TABLET PO (12:26)
--- NOTE | 2023-11-15 13:17 | MHC.CM.PN ---
per rounds pt may be dcd todfay dc plan is for home
--- NOTE | 2023-11-15 15:44 | HO.ADDICTPRO ---
Subjective Subjective Date of Service: 11/15/23 Reason For Visit: Dyspnea Interim History: Chart reviewed --patient received suboxone 2mg at 1999 on 11/14/23 This AM received 0.5mg suboxone at 0600 and methadone 40mg at 0800 Patient seen around noon in room 351. Laying in bed with eyes close, opened slowly when her name called. Unable to answer questions--saying, I don't remember to questions asked. Could not recall being given suboxone. Appearing weak Presentation different than on 11/13 when she was awake, alert, sitting up in bed eating. Review of Systems Acute medical concerns: Yes Medical Review of Systems: changed Mental Status Exam Mental Status Exam Level of Consciousness: Lethargic Patient Behavior: Confused Diagnostics Vital Signs (24Hr): Vital Signs - 24 hr 11/14/23 16:00 11/14/23 19:28 11/14/23 19:46 Temperature 96.9 F 97 F Pulse Rate 110 H 109 H 100 Respiratory Rate 28 H 20 18 Blood Pressure 116/80 130/88 Pulse Oximetry 92 90 L Oxygen Delivery Method Nasal Cannula Nasal Cannula Oxygen Flow Rate 2 5 11/15/23 00:47 11/15/23 02:52 11/15/23 07:14 Temperature 97.4 F 97.9 F Pulse Rate 109 H 100 Respiratory Rate 16 16 Blood Pressure 130/86 125/87 Pulse Oximetry 93 91 L 92 Oxygen Delivery Method Nasal Cannula Nasal Cannula Nasal Cannula Oxygen Flow Rate 3 2 2 11/15/23 07:41 11/15/23 11:17 11/15/23 12:26 Temperature Pulse Rate 105 H 105 H Respiratory Rate 18 24 H Blood Pressure 110/75 Pulse Oximetry Oxygen Delivery Method Oxygen Flow Rate 11/15/23 15:10 Temperature Pulse Rate 98 Respiratory Rate 16 Blood Pressure Pulse Oximetry Oxygen Delivery Method Oxygen Flow Rate BMI result Body Mass Index 23.2 Labs 11/13/23 05:09 11/15/23 08:27 Labs: Laboratory Results - last 48 hr 11/14/23 11/15/23 11/15/23 05:50 05:36 08:27 Hold Purple Top SEE NOTE VBG pH 7.54 H VBG pCO2 25 VBG pO2 227 VBG HCO3 22 VBG O2 Saturation 99.0 VBG Base Excess 2.3 Sodium 130 L 134 L Potassium 3.3 3.8 Chloride 89 L 91 L Carbon Dioxide 26 27 Anion Gap 18 20 BUN 12 32 H Creatinine 0.53 0.61 Estim Creat Clear Calc 95.6 83.1 Estimated GFR > 60 > 60 Random Glucose 142 H 126 H Calcium 9.7 D 10.6 H D Magnesium 2.3 B-Natriuretic Peptide 4469 H Imaging Radiology Impressions: ITS Impressions Chest X-Ray 11/12/23 17:32 IMPRESSION: 1. Pulmonary vascular congestion. 2. Diffuse interstitial opacification could be interstitial edema, cannot rule out underlying superimposed infiltrates. 3. No significant pleural effusion. 4. Prominent augusto bilaterally could be vascular. Attention to follow-up chest PA and lateral recommended after patient's symptoms improved. Hand X-Ray 11/12/23 17:32 IMPRESSION: Nondisplaced comminuted intra-articular fractures of the proximal phalanges of the fourth and fifth fingers with surrounding soft tissue swelling. Medications Medications Current Medications Acetaminophen (Acetaminophen 325 Mg Tablet) 650 mg PO Q6H PRN PRN Reason: Pain, Mild (Pain Scale 1-3) Last Admin: 11/14/23 18:35 Dose: 650 mg Albuterol/Ipratropium (Albuterol/Iprat 2.5/0.5mg 3 Ml Ampul.Neb) 3 ml INHALE RQ4H WHILE AWAKE [facility] Last Admin: 11/15/23 15:08 Dose: 3 ml Albuterol/Ipratropium (Albuterol/Iprat 2.5/0.5mg 3 Ml Ampul.Neb) 3 ml INHALE Q4H PRN PRN Reason: Wheezing Last Admin: 11/12/23 23:54 Dose: 3 ml Enoxaparin Sodium (Enoxaparin Sodium 40 Mg/0.4 Ml Syringe) 40 mg SUBCUT Q24H [facility] Last Admin: 11/14/23 19:28 Dose: 40 mg Fluticasone/Vilanterol (Fluticasone/Vilanterol 200/25 Blst.W.Dev) 1 puff INHALE RDAILY [facility] Last Admin: 11/15/23 07:38 Dose: 1 puff Furosemide (Furosemide 40 Mg Tablet) 40 mg PO DAILY [facility]; Protocol Last Admin: 11/15/23 12:26 Dose: 40 mg Melatonin (Melatonin 3 Mg Tablet) 6 mg PO BEDTIME PRN PRN Reason: Insomnia Last Admin: 11/14/23 19:27 Dose: 6 mg Mirtazapine (Mirtazapine 7.5 Mg Tablet) 7.5 mg PO BEDTIME [facility] Last Admin: 11/14/23 19:27 Dose: 7.5 mg Nicotine (Nicotine 14 Mg Patch.Td24) 14 mg TRANSDERMA DAILY [facility] Last Admin: 11/15/23 08:14 Dose: 14 mg Ondansetron HCl (Ondansetron Hcl 4 Mg/2 Ml Vial) 4 mg IVPUSH Q8H PRN PRN Reason: Nausea and Vomiting Prednisone (Prednisone 20 Mg Tablet) 40 mg PO DAILY [facility] Sodium Chloride (0.9 % Sodium Chloride Flush 3 Ml Syringe) 3 ml IVFLUSH QSHIFT [facility] Last Admin: 11/15/23 08:14 Dose: 3 ml Venlafaxine HCl (Venlafaxine Hcl Er 150 Mg Cap.Er.24h) 150 mg PO DAILY [facility] Last Admin: 11/15/23 08:13 Dose: 150 mg Venlafaxine HCl (Venlafaxine Hcl Er 37.5 Mg Cap.Er.24h) 37.5 mg PO DAILY [facility] Last Admin: 11/15/23 08:13 Dose: 37.5 mg Allergies Allergies Allergy/AdvReac Type Severity Reaction Status Date / Time No Known Allergies Allergy Verified 11/12/23 16:49 Environmental Allergy Unknown Unknown Uncoded 11/12/23 16:49 Assessment & Plan Assessment & Plan (1) Opioid use disorder: Status: Acute Code(s): F11.90 - Opioid use, unspecified, uncomplicated Assessment and Plan: methadone dose discontinued related to mental status change could receive suboxone in AM if more awake (2mg) will follow up in the AM attending provider aware Total time managing care of this patient today __25__ minutes.
[2023-11-15] MEDS: Melatonin 3 MG TABLET 6 MG PO (19:46)
[2023-11-15] MEDS: Mirtazapine 7.5 MG TABLET PO (19:47)
[2023-11-15] MEDS: Acetaminophen 325 MG TABLET 650 MG PO (19:47)
[2023-11-15] MEDS: Enoxaparin Sodium 40 MG/0.4 ML SYRINGE SUBCUT (19:48)
[2023-11-16] VITALS (11 sets, daily range): BP systolic 105–118; BP diastolic 67–81; PULSE 94–108; RESP 14–22; TEMP 36–37.3; O2SAT 90–96
[2023-11-16 06:03] LABS: Anion Gap 18 (12-20); Blood Urea Nitrogen 53 mg/dL (9-16); Calcium 10.2 mg/dL (8.4-10.2); Carbon Dioxide 22 mmol/L (22-29); Chloride 94 mmol/L (96-108); Creatinine Clr Calc Pharmacy 73.4; Estimated Glomerular Filt Rate > 60; Glucose Random 118 mg/dL (60-115); Magnesium 2.5 mg/dL (1.6-2.6); Potassium 4.2 mmol/L (3.3-5.1); Sodium 130 mmol/L (135-145)
[2023-11-16 08:09] LABS: B Type Natriuretic Peptide 3312 pg/mL (<100)
[2023-11-16] MEDS: Nicotine 14 MG PATCH.TD24 TRANSDERMA (08:34)
[2023-11-16] MEDS: Venlafaxine HCl ER 150 MG CAP.ER.24H PO (08:34)
[2023-11-16] MEDS: 0.9 % Sodium Chloride Flush 3 ML SYRINGE IVFLUSH ×3 (08:34→21:45)
[2023-11-16] MEDS: predniSONE 20 MG TABLET 40 MG PO (08:34)
[2023-11-16] MEDS: Furosemide 40 MG TABLET PO (08:34)
[2023-11-16] MEDS: Venlafaxine HCl ER 37.5 MG CAP.ER.24H PO (08:34)
[2023-11-16] MEDS: Fluticasone/Vilanterol 200/25 BLST.W.DEV 1 PUFF INHALE (09:26)
[2023-11-16] MEDS: Albuterol/Iprat 2.5/0.5MG 3 ML AMPUL.NEB INHALE ×3 (09:27→19:33)
--- NOTE | 2023-11-16 10:05 | HO.ADDICTPRO ---
Subjective Subjective Date of Service: 11/16/23 Reason For Visit: Dyspnea Interim History: Patient seen in follow up Awake, alert, sitting up in bed Last methadone dose 11/14 Would like to start suboxone Reporting mild withdrawal sx--mainly anxiety suboxone 12mg administered at noon reassessed at 1400--appeared slightly better, but patient reporting that she felt worse additional 8mg ordered and administered with + effect when re-evaluated by supervisor carbon paper coating of Systems Acute medical concerns: Yes Review of Systems Constitutional: Reports as per HPI Diagnostics Vital Signs (24Hr): Vital Signs - 24 hr 11/15/23 11:17 11/15/23 12:26 11/15/23 15:10 Temperature Pulse Rate 105 H 98 Respiratory Rate 24 H 16 Blood Pressure 110/75 Pulse Oximetry Oxygen Delivery Method Oxygen Flow Rate 11/15/23 15:42 11/15/23 19:20 11/15/23 19:54 Temperature 97.6 F 98.2 F Pulse Rate 112 H 99 99 Respiratory Rate 14 14 14 Blood Pressure 112/80 117/78 Pulse Oximetry 91 L 93 Oxygen Delivery Method Nasal Cannula Nasal Cannula Oxygen Flow Rate 3 3 11/16/23 03:20 11/16/23 07:30 11/16/23 08:34 Temperature 97 F 96.8 F Pulse Rate 108 H 102 H Respiratory Rate 20 14 Blood Pressure 118/77 112/81 112/81 Pulse Oximetry 92 92 Oxygen Delivery Method Nasal Cannula Nasal Cannula Oxygen Flow Rate 3 3 11/16/23 09:28 Temperature Pulse Rate 102 H Respiratory Rate 16 Blood Pressure Pulse Oximetry Oxygen Delivery Method Oxygen Flow Rate BMI result Body Mass Index 23.2 Labs 11/13/23 05:09 11/16/23 05:39 Labs: Laboratory Results - last 48 hr 11/15/23 11/15/23 11/16/23 05:36 08:27 05:39 VBG pH 7.54 H VBG pCO2 25 VBG pO2 227 VBG HCO3 22 VBG O2 Saturation 99.0 VBG Base Excess 2.3 Sodium 134 L 130 L Potassium 3.8 4.2 Chloride 91 L 94 L Carbon Dioxide 27 22 Anion Gap 20 18 BUN 32 H 53 H Creatinine 0.61 0.69 Estim Creat Clear Calc 83.1 73.4 Estimated GFR > 60 > 60 Random Glucose 126 H 118 H Calcium 10.6 H D 10.2 Magnesium 2.3 2.5 B-Natriuretic Peptide 4469 H 11/16/23 07:36 VBG pH VBG pCO2 VBG pO2 VBG HCO3 VBG O2 Saturation VBG Base Excess Sodium Potassium Chloride Carbon Dioxide Anion Gap BUN Creatinine Estim Creat Clear Calc Estimated GFR Random Glucose Calcium Magnesium B-Natriuretic Peptide 3312 H Imaging Radiology Impressions: ITS Impressions Chest X-Ray 11/12/23 17:32 IMPRESSION: 1. Pulmonary vascular congestion. 2. Diffuse interstitial opacification could be interstitial edema, cannot rule out underlying superimposed infiltrates. 3. No significant pleural effusion. 4. Prominent augusto bilaterally could be vascular. Attention to follow-up chest PA and lateral recommended after patient's symptoms improved. Hand X-Ray 11/12/23 17:32 IMPRESSION: Nondisplaced comminuted intra-articular fractures of the proximal phalanges of the fourth and fifth fingers with surrounding soft tissue swelling. Medications Medications Current Medications Acetaminophen (Acetaminophen 325 Mg Tablet) 650 mg PO Q6H PRN PRN Reason: Pain, Mild (Pain Scale 1-3) Last Admin: 11/15/23 19:47 Dose: 650 mg Albuterol/Ipratropium (Albuterol/Iprat 2.5/0.5mg 3 Ml Ampul.Neb) 3 ml INHALE RQ4H WHILE AWAKE [facility] Last Admin: 11/16/23 09:27 Dose: 3 ml Albuterol/Ipratropium (Albuterol/Iprat 2.5/0.5mg 3 Ml Ampul.Neb) 3 ml INHALE Q4H PRN PRN Reason: Wheezing Last Admin: 11/12/23 23:54 Dose: 3 ml Enoxaparin Sodium (Enoxaparin Sodium 40 Mg/0.4 Ml Syringe) 40 mg SUBCUT Q24H [facility] Last Admin: 11/15/23 19:48 Dose: 40 mg Fluticasone/Vilanterol (Fluticasone/Vilanterol 200/25 Blst.W.Dev) 1 puff INHALE RDAILY [facility] Last Admin: 11/16/23 09:26 Dose: 1 puff Furosemide (Furosemide 40 Mg Tablet) 40 mg PO DAILY [facility]; Protocol Last Admin: 11/16/23 08:34 Dose: 40 mg Melatonin (Melatonin 3 Mg Tablet) 6 mg PO BEDTIME PRN PRN Reason: Insomnia Last Admin: 11/15/23 19:46 Dose: 6 mg Mirtazapine (Mirtazapine 7.5 Mg Tablet) 7.5 mg PO BEDTIME [facility] Last Admin: 11/15/23 19:47 Dose: 7.5 mg Nicotine (Nicotine 14 Mg Patch.Td24) 14 mg TRANSDERMA DAILY [facility] Last Admin: 11/16/23 08:34 Dose: 14 mg Ondansetron HCl (Ondansetron Hcl 4 Mg/2 Ml Vial) 4 mg IVPUSH Q8H PRN PRN Reason: Nausea and Vomiting Prednisone (Prednisone 20 Mg Tablet) 40 mg PO DAILY [facility] Last Admin: 11/16/23 08:34 Dose: 40 mg Sodium Chloride (0.9 % Sodium Chloride Flush 3 Ml Syringe) 3 ml IVFLUSH QSHIFT [facility] Last Admin: 11/16/23 08:34 Dose: 3 ml Venlafaxine HCl (Venlafaxine Hcl Er 150 Mg Cap.Er.24h) 150 mg PO DAILY [facility] Last Admin: 11/16/23 08:34 Dose: 150 mg Venlafaxine HCl (Venlafaxine Hcl Er 37.5 Mg Cap.Er.24h) 37.5 mg PO DAILY [facility] Last Admin: 11/16/23 08:34 Dose: 37.5 mg Allergies Allergies Allergy/AdvReac Type Severity Reaction Status Date / Time No Known Allergies Allergy Verified 11/12/23 16:49 Environmental Allergy Unknown Unknown Uncoded 11/12/23 16:49 Assessment & Plan Assessment & Plan (1) Opioid use disorder: Status: Acute Code(s): F11.90 - Opioid use, unspecified, uncomplicated Assessment and Plan: suboxone 8mg BID starting 5/15 AM PRN suboxone 4mg available if patient needs it educational consultant to coordinate referral to outpatient clinic to continue treatment upon discharge Total time managing care of this patient today __50__ minutes.
--- NOTE | 2023-11-16 10:37 | HO.PM.IMPN ---
Subjective Subjective Date of Service: 11/16/23 Interval History: more awake, anxious started on Suboxone breathing improved Review of Systems Review of Systems: Yes all other systems are reviewed and are negative Physical Exam Vital Signs: Vital Signs: Last Vital Signs Temp 96.8 F 11/16/23 07:30 Pulse 102 H 11/16/23 09:28 Resp 16 11/16/23 09:28 BP 112/81 11/16/23 08:34 Pulse Ox 92 11/16/23 07:30 O2 Del Method Nasal Cannula 11/16/23 07:30 O2 Flow Rate 3 11/16/23 07:30 Oxygen Flow Rate 4 11/12/23 16:44 BMI result Body Mass Index 23.2 Gen: in no acute distress HEENT: sclera anicteric, moist mucus membranes Neck: supple Lungs: diminished Heart: regular rate and rhythm, no murmurs Abd: soft, non-tender, non-distended Ext: no edema Skin: warm/well-perfused Neuro: alert and oriented x3, no focal findings Psych: appropriate affect Objective Data Active Medications Acetaminophen (Acetaminophen 325 Mg Tablet) 650 mg PO Q6H PRN PRN Reason: Pain, Mild (Pain Scale 1-3) Last Admin: 11/15/23 19:47 Dose: 650 mg Documented By: CORDELIA Albuterol/Ipratropium (Albuterol/Iprat 2.5/0.5mg 3 Ml Ampul.Neb) 3 ml INHALE RQ4H WHILE AWAKE [facility] Last Admin: 11/16/23 09:27 Dose: 3 ml Documented By: MATT Albuterol/Ipratropium (Albuterol/Iprat 2.5/0.5mg 3 Ml Ampul.Neb) 3 ml INHALE Q4H PRN PRN Reason: Wheezing Last Admin: 11/12/23 23:54 Dose: 3 ml Documented By: VISHAL Enoxaparin Sodium (Enoxaparin Sodium 40 Mg/0.4 Ml Syringe) 40 mg SUBCUT Q24H [facility] Last Admin: 11/15/23 19:48 Dose: 40 mg Documented By: CORDELIA Fluticasone/Vilanterol (Fluticasone/Vilanterol 200/25 Blst.W.Dev) 1 puff INHALE RDAILY [facility] Last Admin: 11/16/23 09:26 Dose: 1 puff Documented By: MATT Furosemide (Furosemide 40 Mg Tablet) 40 mg PO DAILY [facility]; Protocol Last Admin: 11/16/23 08:34 Dose: 40 mg Documented By: KARLA Melatonin (Melatonin 3 Mg Tablet) 6 mg PO BEDTIME PRN PRN Reason: Insomnia Last Admin: 11/15/23 19:46 Dose: 6 mg Documented By: CORDELIA Mirtazapine (Mirtazapine 7.5 Mg Tablet) 7.5 mg PO BEDTIME [facility] Last Admin: 11/15/23 19:47 Dose: 7.5 mg Documented By: CORDELIA Nicotine (Nicotine 14 Mg Patch.Td24) 14 mg TRANSDERMA DAILY [facility] Last Admin: 11/16/23 08:34 Dose: 14 mg Documented By: KARLA Ondansetron HCl (Ondansetron Hcl 4 Mg/2 Ml Vial) 4 mg IVPUSH Q8H PRN PRN Reason: Nausea and Vomiting Prednisone (Prednisone 20 Mg Tablet) 40 mg PO DAILY [facility] Last Admin: 11/16/23 08:34 Dose: 40 mg Documented By: KARLA Sodium Chloride (0.9 % Sodium Chloride Flush 3 Ml Syringe) 3 ml IVFLUSH QSHIFT [facility] Last Admin: 11/16/23 08:34 Dose: 3 ml Documented By: KARLA Venlafaxine HCl (Venlafaxine Hcl Er 150 Mg Cap.Er.24h) 150 mg PO DAILY [facility] Last Admin: 11/16/23 08:34 Dose: 150 mg Documented By: KARLA Venlafaxine HCl (Venlafaxine Hcl Er 37.5 Mg Cap.Er.24h) 37.5 mg PO DAILY [facility] Last Admin: 11/16/23 08:34 Dose: 37.5 mg Documented By: KARLA Labs 11/13/23 05:09 11/16/23 05:39 Labs: Laboratory Results - last 24 hr 11/16/23 11/16/23 05:39 07:36 Anion Gap 18 Estim Creat Clear Calc 73.4 Estimated GFR > 60 Random Glucose 118 H Calcium 10.2 Magnesium 2.5 B-Natriuretic Peptide 3312 H Assessment and Plan (1) Opioid use disorder: Status: Acute (2) Chronic respiratory failure with hypoxia: Status: Acute (3) Congestive heart failure: Status: Acute (4) Acute exacerbation of chronic obstructive airways disease: Status: Acute Plan d5 57yo F with COPD on 2L O2, HF with unknown EF, mood disorder, heroin use disorder presented with dyspnea, admitted for hypoxia, found to have HFrEF acute/chronic hypoxic/hypercarbic resp failure - back on home O2 2L [required 4-5 L in ED] - bicarbonate normalized, d/c'ed acetazolamide [got only 1 dose] acute HFrEF cardiomyopathy, possibly takotsubo vs drug-induced - negative 1800 mL, appears euvolemic, changed IV to PO furosemide - TTE 11/15/23: 1. Severely reduced LV ejection fraction of 25-30% with wall motion abnormality multiple territories could represent stress induced cardiomyopathy with possible LV thrombus 2. Normal cardiac valvular Doppler 3. Normal RV systolic pressure 4. Upper limits of normal ascending aortic size 5. No gross pericardial effusion - will consult Cardiology COPD exac - changed to PO prednisone to taper gradually, continue scheduled + prn nebs tobacco abuse disorder - NRT heroin use disorder - changed from methadone to Suboxone; screen HBV/HCV/HIV mood disorder - continue venlafaxine + mirtazpine R 4th/5th finger fractures - continue taping, outpt f/u in 2 wk VTE ppx - LMWH dispo - STR In my clinical judgment, the patient requires continued inpatient hospitalization for the following reasons: CHF workup Total time managing care of this patient today: 35 minutes. Quality Stroke Does the patient have a stroke diagnosis?: No VTE Prior VTE?: No VTE Risk Level:: Medical - moderate - high VTE Device Contraindication: Treatment Not Indicated VTE Drug Contraindication: N/A - Med Ordered
[2023-11-16] MEDS: Acetaminophen 325 MG TABLET 650 MG PO ×2 (10:48→19:38)
[2023-11-16] MEDS: iohexoL 350 MG/ML 100 ML INFUS..BTL IV (11:51)
[2023-11-16] MEDS: Buprenorphine/Naloxone 12/3 mg FILM 1 FILM SUBLINGUAL (12:06)
--- NOTE | 2023-11-16 12:46 | MHC.CM.PN ---
met with pt discussed [facility] completed
[2023-11-16] MEDS: Buprenorphine/Naloxone 8/2 mg FILM 1 FILM SUBLINGUAL (14:20)
[2023-11-16] MEDS: Throat Lozenge, Medicated LOZENGE 1 LOZENGE MUCOUS MEM (19:38)
[2023-11-16] MEDS: ondansetron HCL 4 MG/2 ML VIAL IVPUSH (20:04)
[2023-11-16] MEDS: Enoxaparin Sodium 40 MG/0.4 ML SYRINGE SUBCUT (20:06)
[2023-11-16] MEDS: Zolpidem Tartrate 5 MG TABLET PO (20:51)
--- NOTE | 2023-11-17 | ECG_ITS ---
Test Reason : CHF Blood Pressure : / mmHG Vent. Rate : 094 BPM Atrial Rate : 094 BPM P-R Int : 136 ms QRS Dur : 092 ms QT Int : 366 ms P-R-T Axes : 043 061 073 degrees QTc Int : 457 ms Normal sinus rhythm Minimal voltage criteria for LVH, may be normal variant ( Palomo product ) Septal infarct , age undetermined T wave abnormality, consider lateral ischemia Abnormal ECG When compared with ECG of 12-NOV-2023 17:04, Significant changes have occurred Referred By: Shana Gonzalez Electronically Signed By:MARLEN PAK MD
[2023-11-17 07:28] VITALS: BP 119/79; PULSE 90; RESP 16; TEMP 36.6; O2SAT 92
[2023-11-17] MEDS: predniSONE 20 MG TABLET 40 MG PO (07:38)
[2023-11-17] MEDS: Venlafaxine HCl ER 37.5 MG CAP.ER.24H PO (07:38)
[2023-11-17] MEDS: Nicotine 14 MG PATCH.TD24 TRANSDERMA (07:38)
[2023-11-17] MEDS: Furosemide 40 MG TABLET PO (07:38)
[2023-11-17] MEDS: Venlafaxine HCl ER 150 MG CAP.ER.24H PO (07:39)
[2023-11-17] MEDS: 0.9 % Sodium Chloride Flush 3 ML SYRINGE IVFLUSH (07:39)
[2023-11-17] MEDS: Buprenorphine/Naloxone 8/2 mg FILM 1 FILM SUBLINGUAL (07:39)
[2023-11-17] MEDS: Albuterol/Iprat 2.5/0.5MG 3 ML AMPUL.NEB INHALE ×2 (07:54→11:44)
[2023-11-17] MEDS: Fluticasone/Vilanterol 200/25 BLST.W.DEV 1 PUFF INHALE (07:54)
[2023-11-17 07:56] VITALS: PULSE 97; RESP 16; O2SAT 95
[2023-11-17 08:00] VITALS: PULSE 90
[2023-11-17 09:48] LABS: HBS Num1 0.27 mIU/mL (0-7.99); HBc Num1 0.26 S/CO (0.00-0.79); HBsAGNum1 0.29 S/CO (0.00-0.99); HIV AB/AG Nonreactive (Nonreactive); HIV Num 1 0.05 S/CO (0.00-0.99); Hepatitis B Core Antibody Nonreactive (Nonreactive); Hepatitis B Surface Antigen Negative (Negative); ~HepC Num1 0.18 S/CO (0.00-0.79); ~Hepatitis B Surface Antibody NONREACTIVE (Nonreactive); ~Hepatitis C Antibody Nonreactive (Nonreactive)
[2023-11-17 10:28] LABS: B Type Natriuretic Peptide 2561 pg/mL (<100)
[2023-11-17 10:32] LABS: Anion Gap 17 (12-20); Blood Urea Nitrogen 36 mg/dL (9-16); Calcium 9.2 mg/dL (8.4-10.2); Carbon Dioxide 27 mmol/L (22-29); Chloride 91 mmol/L (96-108); Creatinine Clr Calc Pharmacy 81.8; Estimated Glomerular Filt Rate > 60; Glucose Random 122 mg/dL (60-115); Potassium 4.1 mmol/L (3.3-5.1); Sodium 131 mmol/L (135-145)
--- NOTE | 2023-11-17 10:35 | PM.CNCAR ---
History of Present Illness History of Present Illness Date of Service: 11/17/23 Requesting physician: Shana Gonzalez Consult reason: other (LV systolic dysfunction) Chief complaint: Dyspnea Narrative: I was consulted to see David in cardiology consultation today for new finding of severe LV systolic dysfunction. Patient is 57-year-old female with prior history of severe COPD, on home oxygen but does not use it all the time only when she gets short of breath. Sees a director of cardiopulmonary services at [facility]. Continues to smoke unfortunately. Also uses heroin which she snorts. She went to her primary care physician last Wednesday after possibly during heroin and was noted to be sedated and drowsy and in respiratory distress and was referred to the emergency room. When she came to the emergency room she was noted to have U tox positive for fentanyl. She was noted to be in COPD exacerbation. She was admitted for management. She is doing well at this point time but continues to require oxygen. She has no other signs of heart failure with no leg edema, abdominal distension, orthopnea, PND. She says she is normally very active. She denies any chest pain. Echo was performed which showed severe LV systolic dysfunction with multiple wall motion abnormality which could suggest stress-induced cardiomyopathy although coronary artery disease can not be entirely ruled out. There was suggestion of possible LV thrombus although CT scan was performed yesterday which does not show any evidence of LV thrombus. She is being managed currently for her cardiomyopathy and COPD. She says she is going to stop smoking as well as doing heroin. Review of Systems Constitutional: Constitutional: Reports no additional constitutional complaints Eyes: Eyes: Reports no additional eye complaints Cardiovascular: Cardiovascular: Denies chest pain, Denies rapid heart rate, Denies lightheadedness, Denies Loss of Consciousness, Denies palpitations, Reports dyspnea on exertion and Denies orthopnea Respiratory: Respiratory: Reports dyspnea on exertion and Denies wheezing Gastrointestinal: Gastrointestinal: Reports no additional gastrointestinal complaints Genitourinary: Genitourinary: Reports no additional female genitourinary complaints Musculoskeletal: Musculoskeletal: Reports no additional musculoskeletal complaints Integumentary/Breasts: Skin/Breast: Reports system reviewed and no additional complaints, except as docu Endocrine: Endocrine: Denies palpitations Allergic/Immunologic: Allergic/Immunologic: Denies wheezing PMFSH Past Medical History Medical History Mood disorder Opioid use disorder Chronic respiratory failure with hypoxia Congestive heart failure Social History Social History Household Members: Significant Other Housing: House Do you presently have visiting nurse or other home services: No Patient Tobacco Use Status: Former Tobacco user Substance Use Type: Heroin service: No Meds Allergies Allergy/AdvReac Type Severity Reaction Status Date / Time No Known Allergies Allergy Verified 11/12/23 16:49 Environmental Allergy Unknown Unknown Uncoded 11/12/23 16:49 Active Medications: Current Medications Acetaminophen (Acetaminophen 325 Mg Tablet) 650 mg PO Q6H PRN PRN Reason: Pain, Mild (Pain Scale 1-3) Last Admin: 11/16/23 19:38 Dose: 650 mg Albuterol/Ipratropium (Albuterol/Iprat 2.5/0.5mg 3 Ml Ampul.Neb) 3 ml INHALE RQ4H WHILE AWAKE [facility] Last Admin: 11/17/23 07:54 Dose: 3 ml Albuterol/Ipratropium (Albuterol/Iprat 2.5/0.5mg 3 Ml Ampul.Neb) 3 ml INHALE Q4H PRN PRN Reason: Wheezing Last Admin: 11/12/23 23:54 Dose: 3 ml Benzocaine (Throat Lozenge, Medicated Lozenge) 1 lozenge MUCOUS MEM Q2H PRN PRN Reason: Sore Throat Last Admin: 11/16/23 19:38 Dose: 1 lozenge Buprenorphine/Naloxone (Buprenorphine/Naloxone 4/1 Mg Film) 1 film SUBLINGUAL DAILY PRN PRN Reason: Opiate Withdrawal Buprenorphine/Naloxone (Buprenorphine/Naloxone 8/2 Mg Film) 1 film SUBLINGUAL BID@0900,1600 [facility] Last Admin: 11/17/23 07:39 Dose: 1 film Enoxaparin Sodium (Enoxaparin Sodium 40 Mg/0.4 Ml Syringe) 40 mg SUBCUT Q24H [facility] Last Admin: 11/16/23 20:06 Dose: 40 mg Fluticasone/Vilanterol (Fluticasone/Vilanterol 200/25 Blst.W.Dev) 1 puff INHALE RDAILY [facility] Last Admin: 11/17/23 07:54 Dose: 1 puff Furosemide (Furosemide 40 Mg Tablet) 40 mg PO DAILY [facility]; Protocol Last Admin: 11/17/23 07:38 Dose: 40 mg Melatonin (Melatonin 3 Mg Tablet) 6 mg PO BEDTIME PRN PRN Reason: Insomnia Last Admin: 11/15/23 19:46 Dose: 6 mg Mirtazapine (Mirtazapine 7.5 Mg Tablet) 7.5 mg PO BEDTIME [facility] Last Admin: 11/15/23 19:47 Dose: 7.5 mg Nicotine (Nicotine 14 Mg Patch.Td24) 14 mg TRANSDERMA DAILY [facility] Last Admin: 11/17/23 07:38 Dose: 14 mg Ondansetron HCl (Ondansetron Hcl 4 Mg/2 Ml Vial) 4 mg IVPUSH Q8H PRN PRN Reason: Nausea and Vomiting Last Admin: 11/16/23 20:04 Dose: 4 mg Prednisone (Prednisone 10 Mg Tablet) 30 mg PO DAILY [facility] Sodium Chloride (0.9 % Sodium Chloride Flush 3 Ml Syringe) 3 ml IVFLUSH QSHIFT [facility] Last Admin: 11/17/23 07:39 Dose: 3 ml Venlafaxine HCl (Venlafaxine Hcl Er 150 Mg Cap.Er.24h) 150 mg PO DAILY [facility] Last Admin: 11/17/23 07:39 Dose: 150 mg Venlafaxine HCl (Venlafaxine Hcl Er 37.5 Mg Cap.Er.24h) 37.5 mg PO DAILY [facility] Last Admin: 11/17/23 07:38 Dose: 37.5 mg Zolpidem Tartrate (Zolpidem Tartrate 5 Mg Tablet) 5 mg PO BEDTIME PRN PRN Reason: Insomnia Last Admin: 11/16/23 20:51 Dose: 5 mg Home Medications ?Medication ?Instructions ?Recorded ?Confirmed ?Last Taken ?Type albuterol sulfate 90 mcg/actuation 2 puff inhalation QID wheezing 11/12/23 11/12/23 11/12/23 History aerosol inhaler alendronate 70 mg tablet 70 mg PO SA 11/12/23 11/12/23 11/12/23 History fluticasone furoate 200 1 ea inhalation DAILY 11/12/23 11/12/23 11/12/23 History mcg-vilanterol 25 mcg/dose inhalation powder (Breo Ellipta) mirtazapine 7.5 mg tablet 7.5 mg PO BEDTIME insomnia 11/12/23 11/12/23 11/12/23 History umeclidinium 62.5 mcg/actuation 1 inh inhalation DAILY 11/12/23 11/12/23 11/12/23 History blister powder for inhalation (Incruse Ellipta) venlafaxine 150 mg 150 mg PO DAILY 11/12/23 11/12/23 11/12/23 History capsule,extended release 24 hr venlafaxine 37.5 mg 37.5 mg PO DAILY 11/12/23 11/12/23 11/12/23 History capsule,extended release 24 hr Physical Exam Vital Signs: Vital Signs: Last Vital Signs Temp 97.8 F 11/17/23 07:28 Pulse 97 11/17/23 07:56 Resp 16 11/17/23 07:56 BP 119/79 11/17/23 07:28 Pulse Ox 92 11/17/23 07:28 O2 Del Method Nasal Cannula 11/17/23 07:28 O2 Flow Rate 3 11/17/23 07:28 Oxygen Flow Rate 4 11/12/23 16:44 BMI result Body Mass Index 23.2 Const: General: cooperative, comfortable, no acute distress, alert and awake Nutritional Appearance: underweight Orientation/consciousness: patient oriented x3 HEENT: Head: Yes normocephalic and Yes atraumatic Neck: Neck: Yes trachea midline, Yes supple and Yes no JVD Resp: Effort & Inspection: normal respiratory effort Auscultation: no rales, no wheezes and diminished lung sounds Cardio: Jugular venous distension: no JVD Rate: regular rate Rhythm: regular rhythm Heart sounds: S1 normal heart sound present, S2 normal heart sound present, no click, no gallops and no murmurs GI: Auscultation: normal bowel sounds Skin: General skin exam: no rashes or lesions noted and ecchymosis Neuro: General: patient oriented x3 and no focal motor deficits Extrem: General: Yes no clubbing, cyanosis or edema Psych: Appearance: grossly normal Objective Labs and Meds 11/13/23 05:09 11/17/23 09:50 Lab results: Laboratory Results - last 24 hr 11/17/23 11/17/23 08:01 09:50 Sodium 131 L Potassium 4.1 Chloride 91 L Carbon Dioxide 27 Anion Gap 17 BUN 36 H Creatinine 0.62 Estim Creat Clear Calc 81.8 Estimated GFR > 60 Random Glucose 122 H Calcium 9.2 D Magnesium 2.0 B-Natriuretic Peptide 2561 H Hep Bs Antigen Negative Hep Bs Antibody NONREACTIVE Hep B Core Total Ab Nonreactive Hepatitis C Ab (EIA) Nonreactive HIV 1&2 Ab/P24 Ag 4thGn Nonreactive Imaging Radiologist's impression: Impressions Chest CT 11/16/23 11:48 IMPRESSION: * No CT imaging evidence of a left ventricular pseudoaneurysm or thrombus. * There appears to be subendocardial fat attenuation at the apex of the left ventricle as may be seen in myocardial infarction. * Pulmonary artery trunk is borderline enlarged; consider possibility of pulmonary arterial hypertension. * Moderate pulmonary emphysema has an upper lobe predominance. 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 Also, there are old fractures of T6 and T9 vertebral bodies Assessment and Plan (1) Cardiomyopathy: Status: Acute Severe LV systolic dysfunction with wall motion abnormality in pattern consistent with stress-induced cardiomyopathy although CAD needs to be excluded. This was discussed with her. Given her multiple risk factors multivessel coronary artery disease is likely. She require cardiac catheterization for the same. This was discussed with her. The risks, benefits, alternatives were discussed. She understands agrees. She has no signs or symptoms of heart failure and does not require any diuretic regimen although will start on neurohormonal modulation given her low blood pressure valsartan 20 mg b.i.d. and metoprolol 12.5 mg b.i.d.. Complete avoidance of smoking as well as other drugs was discussed with her. She says she is very motivated about the same. Further treatment based on the findings. Will follow with her as outpatient Procedures Date of Service Date of Service: 11/17/23
--- NOTE | 2023-11-17 10:47 | PM.DS ---
DS: Providers Provider Date of Service: 11/17/23 Date of admission: 11/12/23 20:55 Primary care physician: Baljinder Ramirez MD Consults: 11/12/23 22:13 Addiction Medicine Routine Consulting Provider: Addiction Covering Reason for consultation: Heroin use disorder 11/13/23 05:25 Consult to Orthopedics Routine Consulting Provider: [facility] Reason for consultation: Comminuted fractures of the 4th and 5th fingers 11/16/23 10:40 Consult to Cardiology Routine Consulting Provider: [facility] Reason for consultation: takotsubo vs drug-induced CM; EF 25%. DS: Diagnosis Discharge Diagnosis (1) Cardiomyopathy: Status: Acute (2) Acute HFrEF (heart failure with reduced ejection fraction): Status: Acute (3) Acute and chronic respiratory failure with hypoxia: Status: Acute (4) COPD (chronic obstructive pulmonary disease): Status: Acute (5) Opioid use disorder: Status: Acute (6) Acute exacerbation of chronic obstructive airways disease: Status: Acute (7) Finger fracture, right: Status: Acute DS: Summary Hospital Course Hospital Course: From the history and physical by the admitting hospitalist, Chrissy Tovar MD, 11/12/23: This is a 57-year-old female with pertinent history of chronic hypoxic respiratory failure due to COPD on baseline 2 L supplemental oxygen, congestive heart failure with unspecified EF, mood disorder, heroin use disorder who presents to the emergency department for evaluation of dyspnea. Patient states she has been having symptoms for a while . Is a poor historian. Patient went today to PCP's office where she was found to be hypoxemic with SpO2 83% on 3 L supplemental oxygen and she was sent to the ER. Does endorse using heroin on the day of presentation. Admits wheezing but unclear orthopnea or PND. No cough, chest pain or palpitations. Does endorse bilateral lower extremity leg swelling. No fever, chills, abdominal pain, changes in urinary or bowel habits. In the emergency department, patient was found to be satting 86% on her home O2. Imaging with vascular congestion and interstitial edema with BNP 209. Patient was given IV furosemide 40 mg and IV Solu-Medrol with DuoNeb treatments in the ER. Ms Nicole is a 57yo F with COPD on 2L O2, HF with unknown EF, mood disorder, and heroin use disorder who presented with dyspnea and was admitted for hypoxia due to COPD and CHF exacerbations. She was found to have markedly reduced EF with multiple wall motion abnormalities. Hospital course by problem: acute HFrEF cardiomyopathy, possibly takotsubo vs drug-induced - diuresed with IV furosemide then placed on PO furosemide - TTE 11/15/23: 1. Severely reduced LV ejection fraction of 25-30% with wall motion abnormality multiple territories could represent stress induced cardiomyopathy with possible LV thrombus 2. Normal cardiac valvular Doppler 3. Normal RV systolic pressure 4. Upper limits of normal ascending aortic size 5. No gross pericardial effusion - CT of the chest with contrast did not demonstrate any LV thrombus or accessory papillary muscle. There was subendocardial fat attenuation at the apex of the left ventricle. - Cardiology was consulted; started neurohormonal modulation with valsartan and metoprolol succinate. Ultimately transferred to [facility] for cardiac catheterization. COPD exac - treated with IV methylprednisolone and transitioned to prednisone taper; also given scheduled/prn nebulizer treatments. - changed to PO prednisone to taper gradually, continue scheduled + prn nebs acute/chronic hypoxic/hypercarbic resp failure - weaned back to home O2 2L [required 4-5 L in ED] - bicarbonate normalized after 1 dose of acetazolamide heroin use disorder - Addiction Medicine consulted; initially managed with methadone but then changed to Suboxone R 4th/5th finger fractures - Orthopedics consulted; continue taping, outpt f/u in 2 wk She was transferred to [facility] as above for cardiac catheterization. Time Attestation Discharge Coordination Time (in mins): 40 Quality: Safe Use of Opioids Does Pt have an Active Cancer Diagnosis on the Problem List?: No Quality: Stroke Does the patient have a stroke diagnosis?: No Physical Exam Vital Signs: Vital Signs: Last Vital Signs Temp 97.8 F 11/17/23 07:28 Pulse 97 11/17/23 07:56 Resp 16 11/17/23 07:56 BP 119/79 11/17/23 07:28 Pulse Ox 92 11/17/23 07:28 O2 Del Method Nasal Cannula 11/17/23 07:28 O2 Flow Rate 3 11/17/23 07:28 Oxygen Flow Rate 4 11/12/23 16:44 BMI result Body Mass Index 23.2 Gen: in no acute distress HEENT: sclera anicteric, moist mucus membranes Neck: supple Lungs: diminished Heart: regular rate and rhythm, no murmurs Abd: soft, non-tender, non-distended Ext: no edema Skin: warm/well-perfused Neuro: alert and oriented x3, no focal findings Psych: appropriate affect DS: Data Data Completed and Pending Completed studies during hospitalization [Text1]: Laboratory Results WBC 4.9 X10*3/uL (4.8-10.8) 11/13/23 05:09 RBC 5.37 X10*6/uL (4.20-5.50) 11/13/23 05:09 Hgb 16.0 g/dl (12.0-16.0) 11/13/23 05:09 Hct 50.3 % (37.0-47.0) H 11/13/23 05:09 MCV 93.7 fL (80.0-98.0) 11/13/23 05:09 MCH 29.8 pg (27.0-33.0) 11/13/23 05:09 MCHC 31.8 g/dl (31.0-35.0) 11/13/23 05:09 RDW 13.3 % (11.0-16.0) 11/13/23 05:09 Plt Count 215 X10*3/uL (160-400) 11/13/23 05:09 MPV 9.3 fL (9.4-12.3) L 11/13/23 05:09 Immature Gran % (Auto) 0.2 % (0.0-0.4) 11/13/23 05:09 Neut % (Auto) 76.1 % (45-73) H 11/13/23 05:09 Lymph % (Auto) 5.9 % (20-40) L 11/13/23 05:09 Wise % (Auto) 17.6 % (2-11) H 11/13/23 05:09 Eos % (Auto) 0.0 % (0-4) 11/13/23 05:09 Baso % (Auto) 0.2 % (0-2) 11/13/23 05:09 Lymph # (Auto) 0.3 X10*3/uL (1.2-4.9) L 11/13/23 05:09 Wise # (Auto) 0.9 X10*3/uL (0.1-1.2) 11/13/23 05:09 Eos # (Auto) 0.0 X10*3/uL (0.0-0.4) 11/13/23 05:09 Baso # (Auto) 0.0 X10*3/uL (0.0-0.2) 11/13/23 05:09 Abs Immat Gran (auto) 0.01 X10*3/uL (0.00-0.03) 11/13/23 05:09 Absolute Neuts (auto) 3.7 x10*3/uL (2.0-8.3) 11/13/23 05:09 Absolute Nucleated RBC 0.000 X10*3/uL (0.0-0.012) 11/13/23 05:09 Nucleated RBC % (auto) 0.0 /100WBC (0.0-0.2) 11/13/23 05:09 Hold Purple Top SEE NOTE 11/14/23 05:50 VBG pH 7.54 (7.32-7.43) H 11/15/23 05:36 VBG pCO2 25 mmHg 11/15/23 05:36 VBG pO2 227 mmHg 11/15/23 05:36 VBG HCO3 22 mmol/L (22-26) 11/15/23 05:36 VBG O2 Saturation 99.0 % 11/15/23 05:36 VBG Base Excess 2.3 mmol/L 11/15/23 05:36 Sodium 131 mmol/L (135-145) L 11/17/23 09:50 Potassium 4.1 mmol/L (3.3-5.1) 11/17/23 09:50 Chloride 91 mmol/L (96-108) L 11/17/23 09:50 Carbon Dioxide 27 mmol/L (22-29) 11/17/23 09:50 Anion Gap 17 (12-20) 11/17/23 09:50 BUN 36 mg/dL (9-16) H 11/17/23 09:50 Creatinine 0.62 mg/dL (0.5-1.4) 11/17/23 09:50 Estim Creat Clear Calc 81.8 11/17/23 09:50 Estimated GFR > 60 11/17/23 09:50 Random Glucose 122 mg/dL (60-115) H 11/17/23 09:50 Calcium 9.2 mg/dL (8.4-10.2) D 11/17/23 09:50 Magnesium 2.0 mg/dL (1.6-2.6) 11/17/23 08:01 Troponin I High Sens < 2.7 ng/L (<3.5-17.0) 11/12/23 17:06 B-Natriuretic Peptide 2561 pg/mL (<100) H 11/17/23 09:50 Urine Opiates Screen Not Detected (Not Detect) 11/13/23 11:15 Ur Buprenorphine Scrn Not Detected ng/mL (Not Detect) 11/13/23 11:15 Ur Oxycodone Screen Not Detected ng/mL (Not Detect) 11/13/23 11:15 Urine Methadone Screen Not Detected ng/mL (Not Detect) 11/13/23 11:15 Urine Fentanyl Screen POSITIVE (Not Detect) H 11/13/23 11:15 Ur Barbiturates Screen Not Detected (Not Detect) 11/13/23 11:15 Ur Phencyclidine Scrn Not Detected (Not Detect) 11/13/23 11:15 Ur Amphetamines Screen Not Detected (Not Detect) 11/13/23 11:15 U Benzodiazepines Scrn Not Detected (Not Detect) 11/13/23 11:15 Urine Cocaine Screen Not Detected (Not Detect) 11/13/23 11:15 U Marijuana (THC) Screen Not Detected (Not Detect) 11/13/23 11:15 Hep Bs Antigen Negative (Negative) 11/17/23 08:01 Hep Bs Antibody NONREACTIVE (Nonreactive) 11/17/23 08:01 Hep B Core Total Ab Nonreactive (Nonreactive) 11/17/23 08:01 Hepatitis C Ab (EIA) Nonreactive (Nonreactive) 11/17/23 08:01 HIV 1&2 Ab/P24 Ag 4thGn Nonreactive (Nonreactive) 11/17/23 08:01 Impressions Chest X-Ray 11/12/23 17:32 IMPRESSION: 1. Pulmonary vascular congestion. 2. Diffuse interstitial opacification could be interstitial edema, cannot rule out underlying superimposed infiltrates. 3. No significant pleural effusion. 4. Prominent augusto bilaterally could be vascular. Attention to follow-up chest PA and lateral recommended after patient's symptoms improved. Hand X-Ray 11/12/23 17:32 IMPRESSION: Nondisplaced comminuted intra-articular fractures of the proximal phalanges of the fourth and fifth fingers with surrounding soft tissue swelling. TTE 11/15/23 1. Severely reduced LV ejection fraction of 25-30% with wall motion abnormality multiple territories could represent stress induced cardiomyopathy with possible LV thrombus 2. Normal cardiac valvular Doppler 3. Normal RV systolic pressure 4. Upper limits of normal ascending aortic size 5. No gross pericardial effusion Chest CT 11/16/23 11:48 IMPRESSION: * No CT imaging evidence of a left ventricular pseudoaneurysm or thrombus. * There appears to be subendocardial fat attenuation at the apex of the left ventricle as may be seen in myocardial infarction. * Pulmonary artery trunk is borderline enlarged; consider possibility of pulmonary arterial hypertension. * Moderate pulmonary emphysema has an upper lobe predominance. 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 Also, there are old fractures of T6 and T9 vertebral bodies Discharge Plan Discharge Anticipated Discharge Date/Time: 11/17/23 10:27 Patient Disposition: Xfer Acute Care Hospital Discharge Diagnosis: acute heart failure/cardiomyopathy acute/chronic hypoxia COPD exacerbation opioid use disorder Referrals: Baljinder Ramirez MD [Primary Care Provider] - 1 Week Mitch Fonseca MD [Physician] - 2 Weeks Discharge Medications: New nicotine 14 mg/24 hr Patch 24 Hour 14 mg transdermal DAILY Qty: 1 0RF enoxaparin 40 mg/0.4 mL Syringe 40 mg subcut Q24H Qty: 1 0RF buprenorphine-naloxone [Suboxone] 8-2 mg Film 1 film sublingual BID@0900,1600 Qty: 1 0RF buprenorphine-naloxone [Suboxone] 4-1 mg Film 1 film sublingual DAILY PRN (Reason: Opiate Withdrawal) Qty: 1 0RF furosemide 40 mg Tablet 40 mg PO DAILY Qty: 1 0RF Protocol: Hold for SBP< HOLD for SBP < : 90 prednisone 10 mg Tablet See Rx Instructions .ROUTE .COMPLEX Qty: 1 0RF Rx Instructions: 30 mg daily 11/17-11/18, then 20 mg daily 11/19-11/20, then 10 mg daily 11/21-11/22, then stop Continued venlafaxine 37.5 mg capsule,extended release 24hr 37.5 mg PO DAILY alendronate 70 mg tablet 70 mg PO SA venlafaxine 150 mg capsule,extended release 24hr 150 mg PO DAILY albuterol sulfate 90 mcg/actuation HFA aerosol inhaler 2 puff inhalation QID mirtazapine 7.5 mg tablet 7.5 mg PO BEDTIME Incruse Ellipta 62.5 mcg/actuation blister with device 1 inh INHALATION DAILY fluticasone furoate-vilanterol [Breo Ellipta] 200-25 mcg/dose blister with device 1 ea inhalation DAILY Discharge Orders: Discharge Order (Routine); Ordered 11/17/23 Ordered By: Shana Gonzalez Diet: Low salt diet Activity on Discharge: As tolerated Stand Alone Forms: Patient Portal Discharge page Print Language: Turkish Care Plan Goals: workup of heart failure cardiac health pulmonary health abstinence from opioid abuse Health Concerns: acute heart failure/cardiomyopathy acute/chronic hypoxia COPD exacerbation opioid use disorder Plan of Treatment: continue furosemide O2 2L as per home regimen prednisone 30 mg daily 11/17-11/18, then 20 mg daily 11/19-11/20, then 10 mg daily 11/21-11/22, then stop start Suboxone 8/2 mg bid Cardiology and Primary Care follow-up after discharge from [facility] Assessment: See Discharge Summary.
[2023-11-17 10:51] LABS: Troponin-I High Sensitivity 233.6 ng/L (<3.5-17.0)
--- NOTE | 2023-11-17 10:59 | PC.NURSE ---
report called to Bela PACK at [facility] and patient to be transferred via ambulance at 12:30
[2023-11-17] MEDS: Metoprolol Succinate ER 12.5 MG HALFTAB.ER.24H PO (11:02)
[2023-11-17] MEDS: Valsartan 40 MG TABLET 20 MG PO (11:03)
[2023-11-17 11:46] VITALS: PULSE 97; RESP 16; O2SAT 95
--- NOTE | 2023-11-17 12:20 | HO.ADDICTPRO ---
Subjective Subjective Date of Service: 11/17/23 Reason For Visit: Dyspnea Interim History: Patient seen in follow up Suboxone 8mg this morning Affect bright, reports withdrawal sx much improved--reporting she feels hungry for the first time since she arrived here, however she is transferring to [facility] for cardiac cath so she is NPO at the moment. Educated patient regarding continuation of suboxone while at [facility] and that there is an Addiction medicine team there as well should she have any concerns (patient just started suboxone on 11/15 so medication is new to her and dose may still require adjustment) Review of Systems Acute medical concerns: Yes Review of Systems Constitutional: Reports as per HPI Diagnostics Vital Signs (24Hr): Vital Signs - 24 hr 11/16/23 15:06 11/16/23 15:44 11/16/23 19:08 Temperature 99.1 F 97.9 F Pulse Rate 101 H 106 H 105 H Respiratory Rate 22 H 18 18 Blood Pressure 105/67 112/74 Pulse Oximetry 91 L 93 Oxygen Delivery Method Nasal Cannula Nasal Cannula Oxygen Flow Rate 3 3 11/16/23 19:33 11/16/23 23:38 11/17/23 07:28 Temperature 97.2 F 97.8 F Pulse Rate 101 H 94 90 Respiratory Rate 18 20 16 Blood Pressure 110/74 119/79 Pulse Oximetry 96 92 Oxygen Delivery Method Nasal Cannula Nasal Cannula Oxygen Flow Rate 3 3 11/17/23 07:56 11/17/23 11:46 Temperature Pulse Rate 97 97 Respiratory Rate 16 16 Blood Pressure Pulse Oximetry Oxygen Delivery Method Oxygen Flow Rate BMI result Body Mass Index 23.2 Labs 11/13/23 05:09 11/17/23 09:50 Labs: Laboratory Results - last 48 hr 11/16/23 11/16/23 11/17/23 05:39 07:36 08:01 Sodium 130 L Potassium 4.2 Chloride 94 L Carbon Dioxide 22 Anion Gap 18 BUN 53 H Creatinine 0.69 Estim Creat Clear Calc 73.4 Estimated GFR > 60 Random Glucose 118 H Calcium 10.2 Magnesium 2.5 2.0 Troponin I High Sens B-Natriuretic Peptide 3312 H Hep Bs Antigen Negative Hep Bs Antibody NONREACTIVE Hep B Core Total Ab Nonreactive Hepatitis C Ab (EIA) Nonreactive HIV 1&2 Ab/P24 Ag 4thGn Nonreactive 11/17/23 09:50 Sodium 131 L Potassium 4.1 Chloride 91 L Carbon Dioxide 27 Anion Gap 17 BUN 36 H Creatinine 0.62 Estim Creat Clear Calc 81.8 Estimated GFR > 60 Random Glucose 122 H Calcium 9.2 D Magnesium Troponin I High Sens 233.6 H* D B-Natriuretic Peptide 2561 H Hep Bs Antigen Hep Bs Antibody Hep B Core Total Ab Hepatitis C Ab (EIA) HIV 1&2 Ab/P24 Ag 4thGn Imaging Radiology Impressions: ITS Impressions Chest X-Ray 11/12/23 17:32 IMPRESSION: 1. Pulmonary vascular congestion. 2. Diffuse interstitial opacification could be interstitial edema, cannot rule out underlying superimposed infiltrates. 3. No significant pleural effusion. 4. Prominent augusto bilaterally could be vascular. Attention to follow-up chest PA and lateral recommended after patient's symptoms improved. Hand X-Ray 11/12/23 17:32 IMPRESSION: Nondisplaced comminuted intra-articular fractures of the proximal phalanges of the fourth and fifth fingers with surrounding soft tissue swelling. Chest CT 11/16/23 11:48 IMPRESSION: * No CT imaging evidence of a left ventricular pseudoaneurysm or thrombus. * There appears to be subendocardial fat attenuation at the apex of the left ventricle as may be seen in myocardial infarction. * Pulmonary artery trunk is borderline enlarged; consider possibility of pulmonary arterial hypertension. * Moderate pulmonary emphysema has an upper lobe predominance. 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 Also, there are old fractures of T6 and T9 vertebral bodies Medications Medications Current Medications Acetaminophen (Acetaminophen 325 Mg Tablet) 650 mg PO Q6H PRN PRN Reason: Pain, Mild (Pain Scale 1-3) Last Admin: 11/16/23 19:38 Dose: 650 mg Albuterol/Ipratropium (Albuterol/Iprat 2.5/0.5mg 3 Ml Ampul.Neb) 3 ml INHALE RQ4H WHILE AWAKE [place] Last Admin: 11/17/23 11:44 Dose: 3 ml Albuterol/Ipratropium (Albuterol/Iprat 2.5/0.5mg 3 Ml Ampul.Neb) 3 ml INHALE Q4H PRN PRN Reason: Wheezing Last Admin: 11/12/23 23:54 Dose: 3 ml Benzocaine (Throat Lozenge, Medicated Lozenge) 1 lozenge MUCOUS MEM Q2H PRN PRN Reason: Sore Throat Last Admin: 11/16/23 19:38 Dose: 1 lozenge Buprenorphine/Naloxone (Buprenorphine/Naloxone 4/1 Mg Film) 1 film SUBLINGUAL DAILY PRN PRN Reason: Opiate Withdrawal Buprenorphine/Naloxone (Buprenorphine/Naloxone 8/2 Mg Film) 1 film SUBLINGUAL BID@0900,1600 [facility] Last Admin: 11/17/23 07:39 Dose: 1 film Enoxaparin Sodium (Enoxaparin Sodium 40 Mg/0.4 Ml Syringe) 40 mg SUBCUT Q24H [facility] Last Admin: 11/16/23 20:06 Dose: 40 mg Fluticasone/Vilanterol (Fluticasone/Vilanterol 200/25 Blst.W.Dev) 1 puff INHALE RDAILY [facility] Last Admin: 11/17/23 07:54 Dose: 1 puff Furosemide (Furosemide 40 Mg Tablet) 40 mg PO DAILY [facility]; Protocol Last Admin: 11/17/23 07:38 Dose: 40 mg Melatonin (Melatonin 3 Mg Tablet) 6 mg PO BEDTIME PRN PRN Reason: Insomnia Last Admin: 11/15/23 19:46 Dose: 6 mg Metoprolol Succinate (Metoprolol Succinate Er 12.5 Mg Halftab.Er.24h) 12.5 mg PO BID [facility]; Protocol Last Admin: 11/17/23 11:02 Dose: 12.5 mg Mirtazapine (Mirtazapine 7.5 Mg Tablet) 7.5 mg PO BEDTIME [facility] Last Admin: 11/15/23 19:47 Dose: 7.5 mg Nicotine (Nicotine 14 Mg Patch.Td24) 14 mg TRANSDERMA DAILY [facility] Last Admin: 11/17/23 07:38 Dose: 14 mg Ondansetron HCl (Ondansetron Hcl 4 Mg/2 Ml Vial) 4 mg IVPUSH Q8H PRN PRN Reason: Nausea and Vomiting Last Admin: 11/16/23 20:04 Dose: 4 mg Prednisone (Prednisone 10 Mg Tablet) 30 mg PO DAILY [facility] Sodium Chloride (0.9 % Sodium Chloride Flush 3 Ml Syringe) 3 ml IVFLUSH QSHIFT [facility] Last Admin: 11/17/23 07:39 Dose: 3 ml Valsartan (Valsartan 40 Mg Tablet) 20 mg PO BID [facility]; Protocol Last Admin: 11/17/23 11:03 Dose: 20 mg Venlafaxine HCl (Venlafaxine Hcl Er 150 Mg Cap.Er.24h) 150 mg PO DAILY [facility] Last Admin: 11/17/23 07:39 Dose: 150 mg Venlafaxine HCl (Venlafaxine Hcl Er 37.5 Mg Cap.Er.24h) 37.5 mg PO DAILY [facility] Last Admin: 11/17/23 07:38 Dose: 37.5 mg Zolpidem Tartrate (Zolpidem Tartrate 5 Mg Tablet) 5 mg PO BEDTIME PRN PRN Reason: Insomnia Last Admin: 11/16/23 20:51 Dose: 5 mg Allergies Allergies Allergy/AdvReac Type Severity Reaction Status Date / Time No Known Allergies Allergy Verified 11/12/23 16:49 Environmental Allergy Unknown Unknown Uncoded 11/12/23 16:49 Assessment & Plan Assessment & Plan (1) Opioid use disorder: Status: Acute Code(s): F11.90 - Opioid use, unspecified, uncomplicated Assessment and Plan: Suboxone 8mg BID (8am and 4pm) dose may still require adjusting as this is only day one of dosing following induction on 11/15 patient will need to be connected to MOUD provider in the community once discharged Total time managing care of this patient today __20__ minutes.
== END 2023-11-17 14:33 | disposition short-term general hospital (02) | DRG 190 ==
LOC: HO.ED 17:46 → HO.EDOVER 21:14 → HO.S3 11-13 23:53
PROVIDERS: Hospitalist; Admitting Provider Student in an Organized Health Care Education/Training Program; Emergency Provider Student in an Organized Health Care Education/Training Program; PCP Family Medicine; Visit Provider Family Medicine
DX: J44.1 Chronic obstructive pulmonary disease with (acute) exacerbation (principal); I50.21 Acute systolic (congestive) heart failure; J96.21 Acute and chronic respiratory failure with hypoxia; F11.20 Opioid dependence, uncomplicated; I51.81 Takotsubo syndrome; S62.646A Nondisplaced fracture of proximal phalanx of right little finger, initial encounter for closed fracture; S62.644A Nondisplaced fracture of proximal phalanx of right ring finger, initial encounter for closed fracture; X58.XXXA Exposure to other specified factors, initial encounter; I25.10 Atherosclerotic heart disease of native coronary artery without angina pectoris; F17.210 Nicotine dependence, cigarettes, uncomplicated; Z71.6 Tobacco abuse counseling; F39 Unspecified mood [affective] disorder; Z99.81 Dependence on supplemental oxygen; Z79.51 Long term (current) use of inhaled steroids; Z79.899 Other long term (current) drug therapy
CPT/HCPCS: 36415; 71045; 71260; 73120; 80048; 80307; 82803; 83735; 83880; 84484; 85025; 86704; 86706; 86803; 87340; 87389; 93005; 93306; 94640; 97162; 99285; J1650; J1940; J2405; J2919; Q9957; Q9967

== ENCOUNTER → 2023-11-12 16:56 | Outpatient (BNV) | payer OTHER, SELFPAY | PROVIDERS: Admitting Provider Student in an Organized Health Care Education/Training Program; Emergency Provider Student in an Organized Health Care Education/Training Program; Visit Provider Internal Medicine Cardiovascular Disease | DX: R94.31 Abnormal electrocardiogram [ECG] [EKG] (principal) | CPT/HCPCS: 93010 ==

== ENCOUNTER 2023-11-12 20:55 | Outpatient (BNV) | payer OTHER, SELFPAY | END 2023-11-15 07:00 | PROVIDERS: Admitting Provider Student in an Organized Health Care Education/Training Program; Emergency Provider Student in an Organized Health Care Education/Training Program; PCP Family Medicine; Visit Provider Internal Medicine Cardiovascular Disease | DX: I50.9 Heart failure, unspecified (principal); I51.81 Takotsubo syndrome | CPT/HCPCS: 93306 ==

== ENCOUNTER 2023-11-12 20:55 | Outpatient (BNV) | payer OTHER, SELFPAY | END 2023-11-17 08:44 | PROVIDERS: Admitting Provider Student in an Organized Health Care Education/Training Program; Emergency Provider Student in an Organized Health Care Education/Training Program; PCP Family Medicine; Visit Provider Internal Medicine Cardiovascular Disease | DX: R94.31 Abnormal electrocardiogram [ECG] [EKG] (principal) | CPT/HCPCS: 93010 ==

== ENCOUNTER → 2023-11-12 20:55 | Outpatient (BNV) | payer OTHER, SELFPAY | PROVIDERS: Admitting Provider Student in an Organized Health Care Education/Training Program; Emergency Provider Student in an Organized Health Care Education/Training Program; PCP Family Medicine; Visit Provider Physician Assistant | DX: S62.644A Nondisplaced fracture of proximal phalanx of right ring finger, initial encounter for closed fracture (principal); S62.646A Nondisplaced fracture of proximal phalanx of right little finger, initial encounter for closed fracture | CPT/HCPCS: 99221 ==

== ENCOUNTER → 2023-11-12 20:55 | Outpatient (BNV) | payer OTHER, SELFPAY | PROVIDERS: Admitting Provider Student in an Organized Health Care Education/Training Program; Emergency Provider Student in an Organized Health Care Education/Training Program; Visit Provider Nurse Practitioner Psychiatric/Mental Health | DX: F11.90 Opioid use, unspecified, uncomplicated (principal) | CPT/HCPCS: 99221; 99231; 99232; 99233 ==

== ENCOUNTER → 2023-11-12 20:55 | Outpatient (BNV) | payer OTHER, SELFPAY | PROVIDERS: Admitting Provider Student in an Organized Health Care Education/Training Program; Emergency Provider Student in an Organized Health Care Education/Training Program; Visit Provider Student in an Organized Health Care Education/Training Program | DX: J44.1 Chronic obstructive pulmonary disease with (acute) exacerbation (principal); I50.9 Heart failure, unspecified; J96.11 Chronic respiratory failure with hypoxia; F11.90 Opioid use, unspecified, uncomplicated | CPT/HCPCS: 99223; 99232; 99233; 99239 ==

== ENCOUNTER → 2023-11-12 20:55 | Outpatient (BNV) | payer OTHER, SELFPAY | PROVIDERS: Admitting Provider Student in an Organized Health Care Education/Training Program; Emergency Provider Student in an Organized Health Care Education/Training Program; PCP Family Medicine; Visit Provider Internal Medicine Cardiovascular Disease | DX: I42.9 Cardiomyopathy, unspecified (principal) | CPT/HCPCS: 99222 ==

== ENCOUNTER → 2023-11-18 23:59 | Outpatient (BNV) | payer OTHER, SELFPAY | PROVIDERS: PCP Family Medicine; Visit Provider Internal Medicine Cardiovascular Disease | DX: I42.9 Cardiomyopathy, unspecified (principal) | CPT/HCPCS: 93454; 99152 ==

== ENCOUNTER 2023-11-24 15:15 | Outpatient (AMB) | payer OTHER, SELFPAY ==
--- NOTE | 2023-11-24 15:21 | MHC.AM.SUB ---
Vital Signs 11/24/23 15:27 BP 110/72 Blood Pressure Location Rt brachial Position Sitting Pulse 89 Pulse Source Pulse Oximeter Pulse Oximetry (%) 92 Oxygen Delivery Method Room Air Intake Visit Reasons: Intake Allergies No Known Allergies Allergy (Verified 11/12/23 16:49) Environmental Allergy (Unknown, Uncoded 11/12/23 16:49) Unknown Medication List - Last Reconciled 11/24/23 by Natalia Zarate, MARGARET albuterol sulfate 90 mcg/actuation 2 puffs inhalation QID alendronate 70 mg PO SA buprenorphine-naloxone 4-1 mg (Suboxone) 1 film sublingual DAILY PRN buprenorphine-naloxone 8-2 mg (Suboxone) 1 film sublingual BID@0900,1600 fluticasone furoate-vilanterol 200-25 mcg/dose (Breo Ellipta) 1 ea inhalation DAILY furosemide 40 mg See Protocol PO DAILY metoprolol succinate ER 12.5 mg (1/2 x 25 mg) PO BID mirtazapine 7.5 mg PO BEDTIME nicotine 14 mg transdermal DAILY umeclidinium 62.5 mcg/actuation (Incruse Ellipta) 1 inh inhalation DAILY valsartan 20 mg See Protocol PO BID venlafaxine ER 37.5 mg PO DAILY venlafaxine ER 150 mg PO DAILY HPI HPI Intake: Details: Referral from [facility] hx of marijuana use, cocaine use, and vicodin (prescribed)- (no current use) Has been using heroin x 4 years - intranasal, 1/2-1 bundle daily, last use 12 days ago No hx of overdose Has no narcan, would like some for home PCP- Dr. Scot Conn in [place] Last appt a few weeks ago Was started on suboxone recently during inpatient stay 8mg BID Reports occasional cravings Has been having low back pain and hot flashes periodically BH Hx depression, and anxiety Has therapist- [facility] in [place], >month since last visit She feels as though her therapist is not a good fit and plans to ask for a different one, she wants a therapist closer to her age Her treatment goal is to maintain recovery [facility] Medical History Mood disorder Opioid use disorder Chronic respiratory failure with hypoxia Congestive heart failure Social History Household Members: Significant Other Housing: House Do you presently have visiting nurse or other home services: No Patient Tobacco Use Status: Former Tobacco user Substance Use Type: Heroin service: No Review of Systems Const Reports as per HPI Physical Exam Vital Signs: Last Vital Signs Pulse 89 11/24/23 15:27 BP 110/72 11/24/23 15:27 Pulse Ox 92 11/24/23 15:27 Oxygen Delivery Method Room Air 11/24/23 15:27 Const General: cooperative and no acute distress Resp Effort & Inspection: normal respiratory effort and able to speak in complete sentences Psych Appearance: grossly normal Mental Status: mental status grossly normal Speech and movement: Normal speech and movement present Affect: normal affect Attitude: cooperative Thought process: Normal thought process present Results AMB 14 Panel Urine Drug Screen Urine Marijuana (THC) Negative Last Edit by Ayla Keller CMA on 11/24/23 15:37 Urine Cocaine Negative Last Edit by Ayla Keller CMA on 11/24/23 15:37 Urine Morphine Negative Last Edit by Ayla Keller CMA on 11/24/23 15:37 Urine Methamphetamine Negative Last Edit by Ayla Keller CMA on 11/24/23 15:37 Urine Amphetamine Negative Last Edit by Ayla Keller CMA on 11/24/23 15:37 Urine Benzodiazepine Negative Last Edit by Ayla Keller CMA on 11/24/23 15:37 Urine Barbiturates Negative Last Edit by Ayla Keller CMA on 11/24/23 15:37 Urine Methadone Negative Last Edit by Ayla Keller CMA on 11/24/23 15:37 Urine Buprenorphine Positive Last Edit by Ayla Keller CMA on 11/24/23 15:37 Urine Tricyclic Antidepressant Negative Last Edit by Ayla Keller CMA on 11/24/23 15:37 Urine MDMA Negative Last Edit by Ayla Keller CMA on 11/24/23 15:37 Urine Oxycodone Negative Last Edit by Ayla Keller CMA on 11/24/23 15:37 Urine Phencyclidine Negative Last Edit by Ayla Keller CMA on 11/24/23 15:37 Urine Propoxyphene Negative Last Edit by Ayla Keller CMA on 11/24/23 15:37 Results Reviewed Results Reviewed: Laboratory Last Values POC Urine Buprenorphine Positive 11/24/23 15:30 POC Urine Morphine Negative 11/24/23 15:30 POC Urine Oxycodone Negative 11/24/23 15:30 POC Urine Methadone Negative 11/24/23 15:30 POC Urine Propoxyphene Negative 11/24/23 15:30 POC Urine Barbiturates Negative 11/24/23 15:30 POC U Tricyclic Antidpr Negative 11/24/23 15:30 POC Urine PCP Negative 11/24/23 15:30 POC Ur Amphetamines Negative 11/24/23 15:30 POC Ur Methamphetamine Negative 11/24/23 15:30 POC Urine MDMA Negative 11/24/23 15:30 POC Ur Benzodiazepine Negative 11/24/23 15:30 POC Urine Cocaine Negative 11/24/23 15:30 POC Ur Marijuana (THC) Negative 11/24/23 15:30 Assessment & Plan Assessment & Plan (1) Opioid use disorder: Code(s): F11.90 - Opioid use, unspecified, uncomplicated Category: Medical Plan: -Patient provided with Narcan, and taught how to use it -Discussed recovery supports, she would like a passenger coach driver referral -Added 4mg midday to address what are likely withdrawal symptoms -Follow up 1 week Orders: Orders AMB 14 Panel Urine Drug Screen Today Z51.81 - Encounter for therapeutic drug level monitoring Medications: Changed From buprenorphine-naloxone 8-2 mg (Suboxone) 1 film sublingual BID@0900,1600 1 ea 0RF To buprenorphine-naloxone 8-2 mg (Suboxone) 1 film sublingual BID 14 ea 0RF From buprenorphine-naloxone 4-1 mg (Suboxone) 1 film sublingual DAILY PRN 1 ea 0RF Opiate Withdrawal To buprenorphine-naloxone 4-1 mg (Suboxone) 1 film sublingual DAILY 7 ea 0RF Refilled nicotine 14 mg transdermal DAILY 28 ea 0RF
[2023-11-24 15:27] VITALS: BP 110/72; PULSE 89; O2SAT 92
== END 2023-11-24 16:13 | disposition home or self-care (01) ==
LOC: HO.HCC 15:15
PROVIDERS: PCP Family Medicine; Visit Provider Nurse Practitioner Family
DX: F11.90 Opioid use, unspecified, uncomplicated (principal)
CPT/HCPCS: 99204

== ENCOUNTER → 2023-11-24 15:15 | Outpatient (BNVA) | payer OTHER, SELFPAY | PROVIDERS: PCP Family Medicine; Visit Provider Nurse Practitioner Family | DX: F11.20 Opioid dependence, uncomplicated (principal); F14.20 Cocaine dependence, uncomplicated; M54.50 Low back pain, unspecified; R23.2 Flushing; Z51.81 Encounter for therapeutic drug level monitoring; Z79.899 Other long term (current) drug therapy | CPT/HCPCS: 80305; 99202 ==

== ENCOUNTER 2023-11-30 16:23 | Outpatient (AMB) | payer OTHER, SELFPAY ==
--- NOTE | 2023-11-30 16:23 | MHC.AM.SUB ---
Vital Signs 11/30/23 16:26 BP 124/86 Blood Pressure Location Rt brachial Position Sitting Pulse 82 Pulse Source Pulse Oximeter Pulse Oximetry (%) 93 Oxygen Delivery Method Nasal Cannula Oxygen Flow Rate 3 Intake Visit Reasons: MAT visit Allergies No Known Allergies Allergy (Verified 11/12/23 16:49) Environmental Allergy (Unknown, Uncoded 11/12/23 16:49) Unknown HPI HPI MAT visit: Details: Patient presents for MAT appointment Asking today if there is anything she can take for cravings She reports intermittent cravings throughout the day, can identify no specific triggers She continues to abstain from illicit substance use She has been taking suboxone 8mg BID with a 4mg afternoon dose HPI Comments Details: Patient presents for MAT visit PFS Medical History Mood disorder Opioid use disorder Chronic respiratory failure with hypoxia Congestive heart failure Social History Household Members: Significant Other Housing: House Do you presently have visiting nurse or other home services: No Patient Tobacco Use Status: Former Tobacco user Substance Use Type: Heroin service: No Review of Systems Const Reports as per HPI Physical Exam Vital Signs: Last Vital Signs Pulse 82 11/30/23 16:26 BP 124/86 11/30/23 16:26 Pulse Ox 93 11/30/23 16:26 Oxygen Delivery Method Nasal Cannula 11/30/23 16:26 Oxygen Flow Rate 3 11/30/23 16:26 Const General: cooperative and no acute distress Resp Effort & Inspection: normal respiratory effort and able to speak in complete sentences Psych Appearance: grossly normal Mental Status: mental status grossly normal Speech and movement: Normal speech and movement present Affect: normal affect Attitude: cooperative Thought process: Normal thought process present Assessment & Plan Assessment & Plan (1) Opioid use disorder: Code(s): F11.90 - Opioid use, unspecified, uncomplicated Category: Medical Plan: -Mass pat reviewed -Dose adjusted to 8mg TID to address residual cravings -Follow up 1 week Medications: New buprenorphine-naloxone 8-2 mg 1 film buccal TID 21 ea 0RF Discontinued buprenorphine-naloxone 8-2 mg (Suboxone) Discontinued Reason: None 1 film sublingual BID 14 ea 0RF buprenorphine-naloxone 4-1 mg (Suboxone) Discontinued Reason: None 1 film sublingual DAILY 7 ea 0RF
[2023-11-30 16:26] VITALS: BP 124/86; PULSE 82; O2SAT 93
== END 2023-11-30 16:54 | disposition home or self-care (01) ==
LOC: HO.HCC 16:23
PROVIDERS: PCP Family Medicine; Visit Provider Nurse Practitioner Family
DX: F11.90 Opioid use, unspecified, uncomplicated (principal)
CPT/HCPCS: 99213

== ENCOUNTER → 2023-11-30 16:23 | Outpatient (BNVA) | payer OTHER, SELFPAY | PROVIDERS: PCP Family Medicine; Visit Provider Nurse Practitioner Family | DX: F11.20 Opioid dependence, uncomplicated (principal) | CPT/HCPCS: 99212 ==

== ENCOUNTER 2023-12-07 09:03 | Outpatient (AMB) | payer OTHER, SELFPAY ==
[2023-12-07 09:06] VITALS: BP 124/80; PULSE 76; O2SAT 66
--- NOTE | 2023-12-07 09:06 | MHC.AM.SUB ---
Vital Signs 12/07/23 09:06 BP 124/80 Blood Pressure Location Lt brachial Position Sitting Pulse 76 Pulse Source Pulse Oximeter Pulse Oximetry (%) 66 L Oxygen Delivery Method Room Air Intake Visit Reasons: MAT visit Allergies No Known Allergies Allergy (Verified 11/12/23 16:49) Environmental Allergy (Unknown, Uncoded 11/12/23 16:49) Unknown HPI HPI MAT visit: Details: Patient presents for MAT appointment States she feels her dose change has been effective, denies withdrawal symptoms or cravings Has some residual back pain she reports is chronic- seeing a chiropractor for this During visit patient was experiencing low O2 saturations, walked up to the office without her oxygen (left it in her car), she is asymptomatic- denies dizziness, shortness of breath. She is speaking in full sentences, no pursed lip breathing or tri-podding. States she has been experiencing some constipation, advised her to take Miralax once a day and to start taking docusate sodium twice daily and increase water intake HPI Comments Details: Patient presents for MAT visit [facility] Medical History Mood disorder Opioid use disorder Chronic respiratory failure with hypoxia Congestive heart failure Social History Household Members: Significant Other Housing: House Do you presently have visiting nurse or other home services: No Patient Tobacco Use Status: Former Tobacco user Substance Use Type: Heroin service: No Review of Systems Const Reports as per HPI Resp Reports as per HPI Physical Exam Vital Signs: Last Vital Signs Pulse 76 12/07/23 09:06 BP 124/80 12/07/23 09:06 Pulse Ox 66 L 12/07/23 09:06 Oxygen Delivery Method Room Air 12/07/23 09:06 Const General: cooperative and no acute distress Resp Effort & Inspection: normal respiratory effort, able to speak in complete sentences, respiratory effort not decreased, not labored, no nasal flaring, no pursed lip breathing, no respiratory distress, not tachypneic and no tripod positioning Psych Appearance: grossly normal Mental Status: mental status grossly normal Speech and movement: Normal speech and movement present Affect: normal affect Attitude: cooperative Thought process: Normal thought process present Assessment & Plan Assessment & Plan (1) Opioid use disorder: Code(s): F11.90 - Opioid use, unspecified, uncomplicated Category: Medical Plan: -Mass pat reviewed -Continue suboxone 8mg TID, pt tolerating well -PT escorted via wheelchair back to her car by JACINTA- reviewed with her how important it is to keep her oxygen tank with her at all times. Reviewed if her sats do not improve after she puts her oxygen back on, to present for higher level of care. Pt agreeable to this. -Follow up 2 weeks Medications: New docusate sodium 100 mg PO BID 60 caps 0RF Refilled buprenorphine-naloxone 8-2 mg 1 film buccal TID 42 ea 0RF
== END 2023-12-07 09:23 | disposition home or self-care (01) ==
PROVIDERS: PCP Family Medicine; Visit Provider Nurse Practitioner Family
DX: F11.90 Opioid use, unspecified, uncomplicated (principal)
CPT/HCPCS: 99213

== ENCOUNTER → 2023-12-07 09:03 | Outpatient (BNVA) | payer OTHER, SELFPAY | PROVIDERS: PCP Family Medicine; Visit Provider Nurse Practitioner Family | DX: F11.20 Opioid dependence, uncomplicated (principal) | CPT/HCPCS: 99212 ==

== ENCOUNTER → 2024-01-05 13:40 | Outpatient (BNVA) | payer OTHER, SELFPAY | PROVIDERS: PCP Family Medicine ==

== ENCOUNTER 2024-01-20 13:51 | Outpatient (AMB) | payer OTHER, SELFPAY ==
--- NOTE | 2024-01-20 14:12 | A.OFFVISCC_ITS ---
Intake Visit Reasons: MAT Allergies No Known Allergies Allergy (Verified 11/12/23 16:49) Environmental Allergy (Unknown, Uncoded 11/12/23 16:49) Unknown HPI HPI MAT: Details: Patient presents for follow up Suboxone 8mg TID Feels nauseous each time she takes dose Thinks about using more often --littlse structure in her day PT 2x/week Pulmonology appt last week started chantix and nicotine patch PCP appt next week [facility] Medical History Mood disorder Opioid use disorder Chronic respiratory failure with hypoxia Congestive heart failure Social History Household Members: Significant Other Housing: House Do you presently have visiting nurse or other home services: No Patient Tobacco Use Status: Former Tobacco user Substance Use Type: Heroin service: No Review of Systems Const Reports as per HPI Physical Exam Const General: cooperative and no acute distress Resp Effort & Inspection: normal respiratory effort, able to speak in complete sentences and not labored Psych Appearance: grossly normal Mental Status: mental status grossly normal Speech and movement: Normal speech and movement present Affect: normal affect Attitude: cooperative Thought process: Normal thought process present Assessment & Plan Assessment & Plan (1) Opioid use disorder: Code(s): F11.90 - Opioid use, unspecified, uncomplicated Category: Medical Plan: * continue suboxone at current dose * added zofran PRN * provided patient with [facility] information--encouraged to consider going at least once per week * follow up 2 weeks Medications: New ondansetron HCl 4 mg PO Q8H PRN 30 tabs 0RF nausea and vomiting Refilled buprenorphine-naloxone 8-2 mg 1 film buccal TID 90 ea 0RF
== END 2024-01-20 14:37 | disposition home or self-care (01) ==
PROVIDERS: PCP Family Medicine; Visit Provider Nurse Practitioner Psychiatric/Mental Health
DX: F11.90 Opioid use, unspecified, uncomplicated (principal)
CPT/HCPCS: 99214

== ENCOUNTER → 2024-01-20 13:51 | Outpatient (BNVA) | payer OTHER, SELFPAY | PROVIDERS: PCP Family Medicine; Visit Provider Nurse Practitioner Psychiatric/Mental Health | DX: F11.20 Opioid dependence, uncomplicated (principal) | CPT/HCPCS: 99212 ==